=== PATIENT | male | born 1940 | race Caucasian/White ===

== ENCOUNTER 2016-08-16 13:10 | Observation (INO) | payer MEDICARE ==
[~2016-08-16] VITALS: Ht 185.4 cm; Wt 106.8 kg
--- NOTE | ~2016-08-16 | HEMODYNAMI ---
PATIENT:SAE GALAVIZ MEDICAL RECORD: [id number] : 42 LOCATION:[facility] D.2117 ADMISSION DATE: 08/16/16 Generatedon:08/17/20169:22 Patient name: SAE GALAVIZ Patient #: [id number] : 1940 Date of study: 08/17/2016 Page: Of Hemodynamic Procedure Report Patient Data Patient Demographics Procedure consent was obtained First Name: SAE Gender: Male Last Name: ANASTACIA : 1940 Middle Initial: CAITLYN Age: 76 year(s) Patient #: [id number] Race: SSN: [id number] Additional ID: [id number] [facility] State: [place] City: [place] Zip code: [address] Past Medical History Allergies Allergen Reaction Date Comments Reported Other allergy 08/17/2016 Propoxyphene napsylate, Morphine, Admission Admission Data Admission Date: 08/16/2016 Admission Time: 15:23 Arrival Date: 08/16/2016 Arrival Time: 15:23 Admit Source: Other Insurance Payor: Medicare Room #: D.2117 Height (in.): 72 BSA: 2.29 (m2) Height (cm.): 182.88 BMI: 31.99 (kg/m2) Weight (lbs.): 235.9 Weight (kg.): 107 Lab Results Lab Result Date: 08/17/2016 Lab Result Time: 0:00 Biochemistry Name Units Result Min Max BUN mg/dl 31 --(----)-* 7 18 Creatinine mg/dl 1.8 --(----)-* 0.6 1.3 CBC Name Units Result Min Max Hemoglobin g/dl 12.3 *-(----)-- 13.5 17.5 Procedure Procedure Types Cath Procedure Diagnostic Procedure LHC LHC w/Coronaries PCI Procedure Coronary Stent Initial Miscellaneous Procedures Moderate Sedation up to 30 minutes Procedure Description Procedure Date Procedure Date: 08/17/2016 Procedure Start Time: 8:52 Procedure End Time: 9:11 Procedure Staff Name Function Minoo James RT Scrub Rosalie Millan RN Nurse Jatinder Guadarrama MD Performing Physician Lisa Bernabe RT Monitor Procedure Data Cath Procedure Fluoroscopy Diagnostic fluoroscopy Total fluoroscopy Time: 4.5 time: 4.5 min min Diagnostic fluoroscopy Total fluoroscopy dose: 766 dose: 766 mGy mGy Contrast Material Contrast Material Type Amount (ml) Isovue 370 80 Entry Location Entry Primary Successful Side Size Upsize Upsize Entry Closure Succes sful Closure Location (Fr) 1 (Fr) 2 (Fr) Remarks Device Remarks Femoral Right 5 Fr 6 Fr Exoseal artery Short Estimated blood loss: 5 ml Diagnostic catheters Device Type Used For End Catheter Placement Cordis 5Fr Pigtail LV Angiography Catheter (MP) Cordis 5Fr JL 4.0 Left Coronary Catheter (MP) Angiography Cordis 5Fr 3DRC Catheter Right Coronary (MP) Angiography Procedure Complications No complications Procedure Medications Medication Administration Route Dosage Oxygen NC 2 l/min Lidocaine 2% added to field 20 Heparin Flush Bag added to field 2 bags (1000units/500ml NS) 0.9% NaCl I.V. 100 ml/hr Benadryl I.V. 50 mg Versed I.V. 2 mg Fentanyl I.V. 100 mcg Versed I.V. 1 mg Fentanyl I.V. 50 mcg Heparin Bolus I.V. 4000 units Integrilin (Bolus I.V. 9.5 ml 2mg/ml) Versed I.V. 1 mg Fentanyl I.V. 50 mcg Plavix P.O. 75 mg Aspirin P.O. 325 mg Hemodynamics Rest BSA: 2.29 (m2) HGB: 12.3 (g/dl) O2 Consumption: Estimated: 275.43 (ml/min) O2 Co nsumption indexed: Estimated:120.28 (ml/min/m) Heart Rate: 84 (bpm) Pressure Samples Time Site Value (mmHg) Purpose Heart Use Rate(bpm) 8:53 LV 155/48,51 Snapshot 64 Snapshots Pre Cath Intra NCS Post Cath Vital Signs Time Heart Resp SPO2 etCO2 [id number] NIBP (mmHg) Rhythm Pain Sedation Rate (ipm) (%) (mmHg) (mmHg) Status Level (bpm) 8:32:33 69 17 97 0 0 169/94(134) NSR 0 (11) 10(A) , No pain 8:36:53 69 20 96 0 0 158/84(142) NSR 0 (11) 10(A) , No pain 8:41:07 71 16 95 0 0 156/102(135) NSR 0 (11) 10(A) , No pain 8:45:29 68 17 95 0 0 167/91(132) NSR 0 (11) 10(A) , No pain 8:49:41 67 19 95 0 0 142/78(125) NSR 0 (11) 10(A) , No pain 8:53:53 68 17 95 0 0 144/93(114) NSR 0 (11) 10(A) , No pain 8:58:15 72 18 93 0 0 119/76(112) NSR 0 (11) 9(A) , No pain 9:02:27 76 19 94 0 0 133/81(119) NSR 0 (11) 9(A) , No pain 9:06:37 75 19 95 0 0 128/79(100) NSR 0 (11) 9(A) , No pain 9:10:55 78 16 96 0 0 127/66(99) NSR 0 (11) 10(A) , No pain 9:14:38 78 11 0 0 121/73(101) NSR 0 (11) 10(A) , No pain Medications Time Medication Route Dose Verified Delivered Reason Notes Effectiveness by by 8:38:02 Oxygen NC 2 Jatinder Buffie used for l/min Chiara Millan RN procedure 8:38:10 Lidocaine 2% added 20ml Jatinderalex Tobias for local to vial Chiara Guadarrama MD anesthetic field 8:38:16 Heparin Flush added 2 Jatinder Jatinder used for Bag to bags Chiara Guadarrama MD procedure (1000units/500ml field NS) 8:38:25 0.9% NaCl I.V. 100 Jatinder Buffie Per physician ml/hr Chiara Millan RN 8:45:59 Benadryl I.V. 50 mg Jatinder Buffie used for Chiara Millan RN procedure 8:52:28 Versed I.V. 2 mg Jatinder Mccallie for sedation Chiara Millan RN 8:52:34 Fentanyl I.V. 100 Jatinder Buffie for sedation mcg Chiara Millan RN 8:55:38 Versed I.V. 1 mg Jatinder Wiggins for sedation Chiara Millan RN 8:55:42 Fentanyl I.V. 50 Jatinder Wiggins for sedation mcg Chiara Millan RN 8:59:23 Heparin Bolus I.V. 4000 Jatinder Wiggins for verifie d units Chiara Millan RN anticoagulation with dr guadarrama 9:02:00 Integrilin I.V. 9.5 Jatinder Wiggins for waste (Bolus 2mg/ml) ml Chiara Millan RN antiplatelet 0.5 ml therapy of vial 9:05:35 Versed I.V. 1 mg Jatinder Wiggins for sedation Chiara Millan RN 9:05:39 Fentanyl I.V. 50 Jatinder Wiggins for sedation mcg Chiara Millan RN 9:10:58 Plavix P.O. 75 mg Jatinder Wiggins for Chiara Millan RN antiplatelet therapy 9:11:25 Aspirin P.O. 325 Jatinder Wiggins for mg Chiara Millan RN antiplatelet therapy Procedure Log Time Note 8:03:42 Informed consent obtained and on chart 8:05:03 Lab Result : Hemoglobin 12.3 g/dl 8:05:03 Lab Result : Creatinine 1.8 mg/dl 8:05:03 Lab Result : BUN 31 mg/dl 8:05:11 Diagnostic Cath Status : Elective 8:09:04 Rosalie Millan RN sent for patient. Start room use. 8:09:05 Time tracking: Regular hours 8:09:11 Plan of Care:Hemodynamics will remain stable., Cardiac rhythm will remain stable., Comfort level will be maintained., Respiratory function will remain adequate., Patient/ family verbilizes understanding of procedure., Procedure tolerated without complication., Recovers from procedure without complications.. 8:11:02 Admit Source: Other 8:11:21 Arrival Date: 08/16/2016 3:23:00 PM 8:11:37 Insurance Payor : Medicare 8:22:59 Patient received from Med II to [facility] 1 Alert and oriented. Tansferred to table in Supine position. 8:23:01 Correct patient and procedure confirmed by team. 8:23:01 Warm blankets applied, and jitendra hugger turned on for patient comfort. 8:23:18 H&P Date Dictated: 08/17/2016 Within 30 days and on chart.. 8:23:20 Pre-procedure instructions explained to patient. 8:23:22 Family in waiting room. 8:23:24 Patient NPO since Midnight. 8:24:05 Patient allergic to Other allergyPropoxyphene napsylate, Morphine, 8:31:17 Vital chart was started 8:31:17 ECG and BP/O2 sat monitors applied to patient. 8:31:18 Baseline sample Acquired. 8:31:42 Rhythm: sinus rhythm 8:31:43 Full Disclosure recording started 8:31:51 Is the patient allergic to Iodine/contrast media? No. 8:31:52 Was the patient premedicated? No 8:32:00 Is patient on blood thinner?No 8:32:20 Patient diabetic? No. 8:32:25 Previous problem with sedation/anesthesia? No ? 8:32:29 Snore? Yes 8:32:30 Sleep apnea? Yes 8:32:50 Deviated septum? No 8:32:51 Opens mouth fully? Yes 8:32:52 Sticks out tongue? Yes 8:32:58 Airway obstruction? Yes copd 8:33:05 Dentures? Yes ? 8:36:02 Pre procedure: right dorsailis pedis pulse 1+ Palpable, but thready & weak; easily obliterated 8:36:04 Patient pain scale 0/10 ?. 8:36:13 IV patent on arrival in right forearm with 0.9% NaCl at [facility]. 8:36:15 Lab results completed and on chart. 8:36:21 Right groin area was prepped with chlora-prep and draped in sterile fashion 8:36:22 Alarms reviewed by R. N. 8:36:23 Sharps counted by scrub and verified by R.N. 8:37:48 Patient Weight : 235.9 kg 8:38:02 Oxygen 2 l/min NC was administered by Rosalie Millan RN; used for procedure; 8:38:05 Patient Height : 72 cm 8:38:10 Lidocaine 2% 20ml vial added to field was administered by Jatindre Guadarrama MD; for local anesthetic; 8:38:16 Heparin Flush Bag (1000units/500ml NS) 2 bags added to field was administered by Jatinder Guadarrama MD; used for procedure; 8:38:25 0.9% NaCl 100 ml/hr I.V. was administered by Rosalie Millan RN; Per physician; 8:41:40 Zero performed for pressure channel P1 8:44:25 Baseline sample Acquired. 8:44:31 Physician paged 8:45:59 Benadryl 50 mg I.V. was administered by Rosalie Millan RN; used for procedure; 8:51:29 Physician arrived 8:51:30 Final Timeout: patient, procedure, and site verified with staff and physician. All members of the team are in agreement. 8:51:30 --------ALL STOP TIME OUT------ 8:51:32 Right groin site verified by team. 8:51:35 Physical assessment completed. ASA score P 3 - A patient with severe systemic disease as per Jatinder Guadarrama MD. 8:51:38 Sedation plan: IV Moderate Sedation Versed, Fentanyl 8:51:54 Use device set Femoral Dx 8:51:56 Medline Cath Pack opened to sterile field. 8:51:56 Bag Decanter opened to sterile field. 8:51:56 Acist Syringe opened to sterile field. 8:51:57 St Jean-Claude 260cm J .035 wire opened to sterile field. 8:51:57 Terumo 5Fr Bonita Sheath opened to sterile field. 8:51:59 Diagnostic Infinity 5Fr Multipack catheter opened to sterile field. 8:51:59 Acist Manifold opened to sterile field. 8:51:59 Acist Hand Control opened to sterile field. 8:52:00 Tegaderm 4 x 4 opened to sterile field. 8:52:15 Procedure started. 8:52:19 Local anesthetic to right femoral artery with Lidocaine 2% by Jatinder Guadarrama MD.INITIAL ACCESS ONLY 8:52:28 Versed 2 mg I.V. was administered by Rosalie Millan RN; for sedation; 8:52:28 A 5 Fr sheath was inserted into the Right Femoral artery 8:52:34 Fentanyl 100 mcg I.V. was administered by Rosalie Millan RN; for sedation; 8:53:12 A Cordis 5Fr Pigtail Catheter (MP) was advanced over the wire and used for LV Angiography. 8:53:57 LV hemodynamics recorded. 8:53:59 LV gram done using HER 8:54:04 Injector settings: Ml/sec: 5, Volume: 15, 8:54:33 EF : 40 % 8:54:39 Catheter removed. 8:54:45 A Cordis 5Fr JL 4.0 Catheter (MP) was advanced over the wire and used for Left Coronary Angiography. 8:55:11 LCA angiography performed. 8:55:14 Injector settings: Ml/sec: 3, Volume: 6, 8:55:38 Versed 1 mg I.V. was administered by Rosalie Millan RN; for sedation; 8:55:42 Fentanyl 50 mcg I.V. was administered by Rosalie Millan RN; for sedation; 8:57:07 Catheter removed. 8:57:14 A Cordis 5Fr 3DRC Catheter (MP) was advanced over the wire and used for Right Coronary Angiography. 8:57:46 RCA angiography performed. 8:57:50 Injector settings: Ml/sec: 3, Volume: 6, 8:58:32 Catheter removed. 8:58:34 Proceeding to intervention. 8:59:01 Cordis 6FR XBLAD 4.0 guide catheter opened to sterile field. 8:59:02 Massey Whisper J 300cm 0.014 guide wire opened to sterile field. 8:59:03 Tus reQRdos BasixCompak Inflation Kit opened to sterile field. 8:59:04 Terumo 6Fr Bonita Sheath opened to sterile field. 8:59:23 Heparin Bolus 4000 units I.V. was administered by Rosalie Millan RN; for anticoagulation; verified with dr guadarrama 8:59:52 Sheath upsized to a 6 Fr Short. 9:00:01 6 Fr xblad 4 guide catheter was inserted over the wire 9:00:06 whisper wire advanced. 9:00:08 Wire advanced across lesion. 9:02:00 Integrilin (Bolus 2mg/ml) 9.5 ml I.V. was administered by Rosalie Millan RN; for antiplatelet therapy; waste 0.5 ml of vial 9:02:39 Inflation number: 1 A Dupont Sci Vernon 3.5 X 15 balloon was prepped and advanced across the Mid LAD, then inflated to 13 PAUL for 0:10 (min:sec). 9:02:56 Inflation number: 2 The Dupont Sci Vernon 3.5 X 15 balloon was reinflated across the Mid LAD, to 13 PAUL for 0:10 (min:sec). 9:03:17 Inflation number: 3 The Dupont Sci Vernon 3.5 X 15 balloon was reinflated across the Mid LAD, to 13 PAUL for 0:10 (min:sec). 9:03:37 Inflation number: 4 The Dupont Sci Vernon 3.5 X 15 balloon was reinflated across the Mid LAD, to 13 PAUL for 0:10 (min:sec). 9:03:38 Balloon removed over the wire. 9:05:35 Versed 1 mg I.V. was administered by Rosalie Millan RN; for sedation; 9:05:39 Fentanyl 50 mcg I.V. was administered by Rosalie Millan RN; for sedation; 9:06:01 Inflation Number: 5 A Biofreedom 3.5 x 14 stent (No Cost Implant) was prepped and advanced across the Mid LAD. The stent was deployed at 15 PAUL for 0:10 (min:sec). 9:06:29 Stent catheter was removed intact over wire. 9:09:02 Wire removed. 9:09:03 Guide catheter removed. 9:09:10 Cordis 6Fr Exoseal opened to sterile field. 9:09:19 Sheath removed intact; hemostasis achieved with Exoseal to the Right Femoral artery. 9:09:20 Procedure ended.(Physican Out) 9:09:49 Fluoroscopy time 04.50 minutes. 9:09:54 Fluoroscopy dose: 766 mGy 9:09:54 Flurop Dose total: 766 9:09:58 Contrast amount:Isovue 370 80ml. 9:10:00 Sharps counted by scrub and verified by R.N. 9:10:01 Insertion/operative site no bleeding no hematoma. 9:10:04 Post-op/insertion site Right Femoral artery dressed using a 4 x 4 and Tegaderm. 9:10:06 Post right femoral artery:stable 9:10:08 Post Procedure Pulses reassessed and unchanged 9:10:11 Post procedure rhythm: unchanged. 9:10:14 Estimated blood loss: 5 ml 9:10:16 Post procedure instruction explained to patient.Patient verbalizes understanding. 9:10:17 Patient needs reinforcement of post procedure teaching. 9:10:41 Procedure type changed to Cath procedure, Diagnostic procedure, LHC, LHC w/Coronaries, PCI procedure, Coronary Stent Initial, Miscellaneous Procedures, Moderate Sedation up to 30 minutes 9:10:42 Procedure and supply charges have been captured, reviewed, submitted and are correct. 9:10:46 Procedure Complication : No complications 9:10:48 Vital chart was stopped 9:10:49 See physician's report for complete and final results. 9:10:58 Plavix 75 mg P.O. was administered by Rosalie Millan RN; for antiplatelet therapy; 9:11:02 Report given to [facility]. 9:11:06 Patient transfered to [facility] with Stretcher. 9:11:07 Full Disclosure recording stopped 9:11:07 Procedure ended. 9:11:13 ACC-PCI Only Patient was given prescriptions, or instructed by Jatinder Guadarrama MD to start/continue the following medications upon discharge: Plavix 9:11:15 End room use (Document Last) 9:11:25 Aspirin 325 mg P.O. was administered by Rosalie Millan RN; for antiplatelet therapy; Intervention Summary Intervention Notes Time ActionType Lesion and Equipment Action# Pressure Duration Attributes Used 9:02:39 Inflate Mid LAD Dupont Sci 1 13 00:10 balloon Vernon 3.5 X 15 balloon 9:02:56 Reinflate Mid LAD Dupont Sci 2 13 00:10 balloon Vernon 3.5 X 15 balloon 9:03:17 Reinflate Mid LAD Dupont Sci 3 13 00:10 balloon Vernon 3.5 X 15 balloon 9:03:37 Reinflate Mid LAD Dupont Sci 4 13 00:10 balloon Vernon 3.5 X 15 balloon 9:06:01 [address] stent Mid LAD Biofreedom 5 15 00:10 3.5 x 14 stent (No Cost Implant) Device Usage Item Name Manufacture Quantity Catalog Number Hospital Part Current [facility] Lot# / Charge Number Stock Stock Serial# Code Acist Acist 1 43330 [id number] 301808 050993 20 Syringe Medical Systems Inc Bag Microtek 1 2002S 380396 54334 232730 5 mo9 (moKredit) Inc. Medline Cardinal 1 [id number] 112506 23274 254550 5 MediaTrust Terumo 5Fr Terumo 1 [id number] 505714 539389 390572 [address] [facility] St Jean-Claude 1 724934 739387 376450 577100 30 260cm J .035 wire Acist Hand Acist 1 02335 998488 925259 330397 5 GoGuide Medical Systems Inc Acist Acist 1 22250 818242 527424 633203 5 Plizy Medical Systems Inc Diagnostic Cardinal 1 [id number] 049539 02158 151866 30 Infinity Health 5Fr Multipack catheter Tegaderm 4 3M 1 1626W 287458 585481 322244 5 x 4 Cordis 5Fr Cardinal 1 369653 5 Pigtail Health Catheter (MP) Cordis 5Fr Cardinal 1 403822 5 JL 4.0 Health Catheter (MP) Cordis 5Fr Cardinal 1 461109 5 3DRC Health Catheter (MP) Cordis 6FR Cardinal 1 [id number] 883340 621300 762084 3 XBLAD 4.0 Health guide catheter Massey Massey 1 [id number] 762722 509627 322245 5 Whisper J Vascular 300cm 0.014 guide wire Merit Merit 1 [id number] 804411 569482 892339 15 Unbooked Ltd Medical Inflation Kit Terumo 6Fr Terumo 1 VQV693 809707 486564 027251 40 Bonita Sheath Dupont Sci Dupont 1 [id number] 898543 347575 547357 1 [id number] Everpay 3.5 X 15 balloon Biofreedom Biosensors 1 BFRC2-3514 351315 787444 5 [id number] 3.5 x 14 Europe SA stent (No Cost Implant) Cordis 6Fr Cardinal 1 EX600 528238 525801 946205 10 [facility] Signature Audit [place] Stage Time Signature Unsigned Intra-Procedure 08/17/2016 Minoo Ramirez RT(R) 9:15:29 AM RT(R) 08/17/2016 9:20:31 AM Intra-Procedure 08/17/2016 Minoo Ramirez 9:22:10 AM RT(R) Signatures Monitor : Lisa Bernabe Signature : RT Date : Time : [facility] [address] [place] [address]
[~2016-08-16 13:10] MED LIST: ACETAMINOPHEN500 M1 PO; BAYER CHEWABLE81 MG PO; COREG 3.1253.125 MG PO; IBUPROFEN200 MG PO; K-TAB10 MEQ PO; LEVAQUIN500 MG PO; METOPROLOL TART50 MG PO; NITROSTAT0.4 MG SL; NORVASC5 MG PO; PLAVIX75 MG PO; PRAVACHOL40 MG PO; PREDNISONE20 MG PO; TRICOR145 MG PO; ZESTORETIC 20/21 TAB PO; ZYLOPRIM300 MG PO; [UNRECOGNIZED DRUG - OTHER] INH
[2016-08-16 13:51] LABS: BASOPHILS 0.3 % (0-2); EOSINOPHILS 5.4 % (0-7); HEMATOCRIT 38.9 % (42.0-54.0); HEMOGLOBIN 12.3 g/dL (13.5-17.5); IMMATURE GRANULOCYTES 1.2 % (0-5); LYMPHOCYTES 13.8 % (15-50); MCH 30.7 pg (26.0-34.0); MCHC 31.6 g/dL (31.0-37.0); MEAN PLATELET VOLUME 11.1 fL (7.4-10.4); MONOCYTES 5.7 % (2-11); NEUTROPHILS 73.6 % (40-80); RBC 4.01 10x6/uL (4.20-6.10); RDW 14.2 % (11.5-14.5); WBC 7.8 10x3/uL (4.8-10.8)
[2016-08-16 13:56] LABS: PLATELET COUNT 228 10x3/uL (130-400)
[2016-08-16 14:09] LABS: ALBUMIN 3.6 g/dL (3.4-5.0); ALKALINE PHOSPHATASE 58 U/L (46-116); ALT (SGPT) 27 U/L (10-68); BILIRUBIN - TOTAL 0.47 mg/dL (0.2-1.3); CALC OSMOLALITY 284 mosm/kg (275-300); CALCIUM 9.9 mg/dL (8.5-10.1); CARBON DIOXIDE 27.9 mmol/L (21.0-32.0); CHLORIDE - SERUM 102 mmol/L (98-107); GLUCOSE 108 mg/dL (74-106); POTASSIUM - SERUM 4.5 mmol/L (3.5-5.1); PROTEIN - SERUM 7.4 g/dL (6.4-8.2); SODIUM 138 mmol/L (136-145); UREA NITROGEN 34 mg/dL (7-18); eGFR NON AFRICAN AMERICAN 35 mL/min (90-120)
[2016-08-16 14:25] LABS: CHOL - HDL RATIO 1.8 ratio (2.3-4.9); CHOLESTEROL, TOTAL 110 mg/dL (0-200); CKMB 7.9 U/L (0.0-3.6); CREATINE KINASE 166 UL (21-232); HDL CHOLESTEROL 62 mg/dL (32-96); LDL CHOLESTEROL 37 mg/dL (0-100); LDL-HDL RATIO 0.6 ratio (1.5-3.5); TRIGLYCERIDE 59 mg/dL (30-200)
[2016-08-16 14:30] LABS: TROPONIN-I 1.792 ng/mL (0.000-0.060)
[2016-08-16 15:33] LABS: APTT 31.9 SECONDS (22.8-39.4); INR 0.98 (0.85-1.17); PROTIME 12.8 SECONDS (11.6-15.0)
--- NOTE | 2016-08-16 15:55 | NUR ---
RECEIVED PT TO ROOM 2116 VIA W/C FROM ER AAOX4 DENIES ANY NEEDS AT THIS TIME DENIES PAIN TELEMETRY APPLIED SR RATE 67 WITH BBB AND PACs WILL CONTINUE TO MONITOR
[2016-08-16 16:26] VITALS: BP 148/64; Ht 185.4 cm; Wt 106.8 kg
[2016-08-16 19:28] LABS: TROPONIN-I 2.054 ng/mL (0.000-0.060)
[2016-08-16] MEDS ORDERED: ULORIC40 MG PO (20:03)
[2016-08-16] MEDS ORDERED: HYZAAR 50-12.51 TAB PO (20:03)
[2016-08-16] MEDS ORDERED: ULTRAM50 MG PO (20:06)
[2016-08-16 20:20] VITALS: BP 137/70
[2016-08-17 00:09] VITALS: BP 133/72
[2016-08-17 02:28] LABS: CKMB 5.4 U/L (0.0-3.6); CREATINE KINASE 197 UL (21-232); TROPONIN-I 1.937 ng/mL (0.000-0.060)
[2016-08-17 04:15] VITALS: BP 135/76
[2016-08-17 07:23] VITALS: BP 136/71
[2016-08-17 07:43] LABS: CALCIUM 9.2 mg/dL (8.5-10.1); CARBON DIOXIDE 29.2 mmol/L (21.0-32.0); CREATININE - SERUM 1.8 mg/dL (0.6-1.3); POTASSIUM - SERUM 4.2 mmol/L (3.5-5.1)
[2016-08-17 07:44] LABS: TROPONIN-I 1.548 ng/mL (0.000-0.060)
[2016-08-17] MEDS ORDERED: FENOFIBRATE160 MG PO (07:44)
--- NOTE | 2016-08-17 09:45 | NUR ---
RECEIVED PT TO ROOM AAOX4 RESP UNLABORED DENIES ANY NEEDS DRSG TO RT GROIN C/D/I NO SIGNS OF BLEEDING PPPX4
[2016-08-17 12:09] VITALS: BP 133/85
--- NOTE | 2016-08-17 14:15 | NUR ---
REVIEWED DISCHARGE INSTRUCTIONS WITH PT STATES UNDERSTANDING COPY GIVEN SALINE LOCK DCD TO RAC WITH IV CATHETER INTACT NO REDNESS OR EDEMA NOTED TO SITE PT DISCHARGED HOME LEFT UNIT IN STABLE CONDITION WITH ALL PERSONAL BELONGINGS
--- NOTE | 2016-08-19 18:08 | HP ---
PATIENT: SAE GALAVIZ MEDICAL RECORD: [id number] ACCOUNT: [id number] LOCATION:[facility] D.2117 : 42 ADMISSION DATE: 08/16/16 HISTORY AND PHYSICAL EXAMINATION DATE OF SERVICE: 08/17/2016 DIAGNOSES: 1. Non-Q-wave myocardial infarction. 2. Coronary artery disease. 3. Previous cardiac stenting, last being 01/02/2014. 4. Smoking history. 5. Hypertension. 6. Hyperlipidemia. MEDICATIONS PRIOR TO ADMISSION: Aspirin, Coreg, amlodipine, fenofibrate, lisinopril, and pravastatin. HISTORY OF PRESENT ILLNESS: This is a gentleman with a past history of coronary artery disease. Last cardiac stent was approximately 2-1/2 years ago. He began having 2 days of chest pain, chest discomfort compatible with angina, quite severe yesterday. Troponin is mildly positive for a small non-Q-wave myocardial infarction. CARDIOVASCULAR HISTORY: Negative for congestive heart failure, negative for myocardial infarction, positive for PCI, negative for CABG, negative for CVA, negative for bleeding problems, negative for peripheral vascular disease. Not a current smoker. Negative for atrial fibrillation. PHYSICAL EXAMINATION: GENERAL APPEARANCE: Well-nourished, well-developed, appears stated age. Level of distress, comfortable. PSYCHIATRIC: Mental status, alert, normal affect. Orientation, oriented to time, place and person. EYES: Lids and conjunctiva, noninjected. No discharge, no pallor. ENT: Lips, teeth, gums, normal dentition. Oropharynx, no cyanosis, no pallor. NECK: Carotid arteries, bilateral normal upstroke, no bruits, no thrills. JUGULAR VEINS: No jugular venous pressure or distention. CERVICAL LYMPH NODES: Nontender, nonenlarged. THYROID: Not enlarged. Nontender. No nodules. LUNGS: Respiratory effort, unlabored. CHEST: Normal curvature. No thoracic deformity. No chest wall tenderness. Percussion, resonant. Auscultation, clear. No wheezes, no rales, no rhonchi. CARDIOVASCULAR: Precordial exam, nondisplaced. No heaves or pericardial thrills. Rate and rhythm, regular. Heart sounds, normal S1, normal S2. No S3, no gallop, no rub. Systolic murmur, not heard. Diastolic murmur, not heard. EXTREMITIES: No cyanosis, no edema. Peripheral pulses, full and equal in all extremities, except as noted. No bruits appreciated. ABDOMEN: Soft, nondistended. Normal aorta. No bruit. Nontender. No masses. Liver, nontender, no hepatomegaly. Spleen, nontender, no splenomegaly. MUSCULOSKELETAL: No joint tenderness. No joint swelling. No erythema. NEUROLOGICAL: Normal gait, normal strength, normal tone. SKIN: Warm and dry. OVERALL IMPRESSION: Non-Q-wave myocardial infarction. We will proceed with HISTORY AND PHYSICAL [id number] SAE GALAVIZ coronary angiography. Further care depends upon findings of the angiography. TRANSINT:[id number] Voice Confirmation ID: [id number] DOCUMENT ID: [id number] SERENA SALVADOR MD at 1808 CC: [id number] DICTATION DATE: 08/17/16 0751 GREASE MAKER: 08/17/16 1039 DIS IN 08/17/16 [address] [place] [address]
--- NOTE | 2016-08-19 18:08 | OP ---
PATIENT NAME: SAE GALAVIZ MEDICAL RECORD: [id number] :42 LOCATION:D.M2 D.2117 ADMISSION DATE:08/16/16 SURGEON: SERENA SALVADOR MD DATE OF OPERATION: 08/17/2016 PROCEDURES: 1. PTCA stent of the LAD. 2. Left heart catheterization. 3. Selective coronary angiography. 4. Left ventriculogram. INDICATION: Non-Q-wave myocardial infarction. PROCEDURE: After informed consent was obtained and after detailed explanation of risks, benefits as well as alternative therapies, the patient elected to proceed with angiogram and angioplasty. The right femoral area was prepped and draped in normal sterile fashion. The right femoral artery was cannulated via modified Seldinger technique with placement of 6-Estonian sheath. All catheters exchanged through this sheath. FINDINGS: Left ventriculogram was performed in standard 30-degree HER view, reveals global hypokinesis. Overall ejection fraction estimated at 40%. SELECTIVE CORONARY ANGIOGRAPHY: 1. Left main showed no significant angiographic disease. 2. Left anterior descending has previously placed stents in the LAD and the LAD diagonal. At the juncture of the LAD and LAD diagonal, there is a hazy 80% stenosis in the LAD itself. Otherwise, the LAD has only moderate irregularities, but no flow-limiting stenosis. This area of in-stent restenosis is approximately 12 mm, there is a 3-5 vessel, there is MARIKA 3 flow at this time. 3. Left circumflex has moderate irregularities, but no flow-limiting stenosis. 4. The right coronary has previously placed stent. This is a widely patent with no significant restenosis. No disease elsewise throughout ____. PTCA STENT OF THE LAD: The stent used was a 3.5 x 14 mm BioFreedom taken to 15 atmospheres. Result was 0% residual stenosis, MARIKA-3 flow. IMPRESSION: Successful percutaneous transluminal coronary angioplasty stent of the left anterior descending going from 80% in-stent restenosis to 0% residual stenosis. TRANSINT:[id number] Voice Confirmation ID: [id number] DOCUMENT ID: [id number] SERENA SALVADOR MD at 1808 CC: [id number] DICTATION DATE: 08/17/16921 FIELD TRAINING MANAGER: 08/17/16 1848 DIS IN 08/17/16 [facility] [address] [facility] [place] [address]
--- NOTE | 2016-08-19 18:08 | DS ---
PATIENT:SAE WELSH :42 MEDICAL RECORD: [id number] DISCHARGE SUMMARY ADMISSION DATE: 08/16/16 DISCHARGE DATE: 08/17/16 DATE OF SERVICE: 08/17/2016. DIAGNOSES: 1. Non-Q-wave myocardial infarction. 2. Coronary artery disease. 3. Hypertension. 4. Hyperlipidemia. 5. Percutaneous transluminal coronary angioplasty stent left anterior descending this admission. HOSPITAL COURSE: Mrs. Welsh presents with anginal symptomatology, rules in for non-Q-wave myocardial infarction, underwent cardiac catheterization revealing single vessel disease to the LAD, underwent successful PTCA stent of the LAD, had an uneventful postop course. He was discharged home with the addition of Plavix to his medical regimen as he is already on aspirin, beta patricia and statin. We will follow up with [facility] in 1 month. TRANSINT:[id number] Voice Confirmation ID: [id number] DOCUMENT ID: [id number] SERENA SALVADOR MD at 1808 CC: [id number] DICTATION DATE: 08/17/16919 GRAPHIC DESIGN ASSISTANT: 08/18/16 0106 DIS IN 08/17/16 [facility] [address] [place] [address]
== END 2016-08-17 14:15 | disposition home or self-care (01) ==
LOC: D.ER 13:10 → D.M2 15:23 → OBSVTIME 15:23 → D.M2 08-17 14:15
PROVIDERS: Emergency Medicine; Nurse Practitioner Acute Care; ADMIT Internal Medicine Interventional Cardiology
DX: I21.4 Non-ST elevation (NSTEMI) myocardial infarction (principal); I25.10 Atherosclerotic heart disease of native coronary artery without angina pectoris; T82.855A Stenosis of coronary artery stent, initial encounter; Y83.8 Other surgical procedures as the cause of abnormal reaction of the patient, or of later complication, without mention of misadventure at the time of the procedure; I10 Essential (primary) hypertension; E78.5 Hyperlipidemia, unspecified; Z00.6 Encounter for examination for normal comparison and control in clinical research program
CPT/HCPCS: 93458; C9600

== ENCOUNTER 2017-07-27 09:01 | Observation (INO) | payer MEDICARE ==
[~2017-07-27] VITALS: Ht 185.4 cm; Wt 114.4 kg
--- NOTE | ~2017-07-27 | CN ---
PATIENT NAME:SAE GALAVIZ MEDICAL RECORD: [id number] : 42 LOCATION:D. D.2112 ADMIT DATE: 07/27/17 ACCOUNT: [id number] CONSULTING PHYSICIAN: SERENA SALVADOR MD REFERRING PHYSICIAN: NENA CARRERA MD DATE OF CONSULTATION: 07/29/2017 DIAGNOSES: 1. Angina. 2. Coronary artery disease. 3. Previous PTCA and stent. 4. Hypertension. 5. Chronic obstructive pulmonary disease. 6. Smoking history. 7. Hyperlipidemia. 8. Renal insufficiency. HISTORY OF PRESENT ILLNESS: This is a gentleman known to us with a past history of coronary artery disease. He presented with dizziness and chest pain. His troponin is normal; however, his EKG has ST-T changes in the anterior leads on serial EKGs. He has continued to have some episodes of chest pain. Last cardiac intervention was approximately 2 years ago. PHYSICAL EXAMINATION: GENERAL APPEARANCE: Well-nourished, well-developed, appears stated age. Level of distress, comfortable. PSYCHIATRIC: Mental status, alert, normal affect. Orientation, oriented to time, place and person. EYES: Lids and conjunctiva, noninjected. No discharge, no pallor. ENT: Lips, teeth, gums, normal dentition. Oropharynx, no cyanosis, no pallor. NECK: Carotid arteries, bilateral normal upstroke, no bruits, no thrills. JUGULAR VEINS: No jugular venous pressure or distention. CERVICAL LYMPH NODES: Nontender, nonenlarged. THYROID: Not enlarged. Nontender. No nodules. LUNGS: Respiratory effort, unlabored. CHEST: Normal curvature. No thoracic deformity. No chest wall tenderness. Percussion, resonant. Auscultation, clear. No wheezes, no rales, no rhonchi. CARDIOVASCULAR: Precordial exam, nondisplaced. No heaves or pericardial thrills. Rate and rhythm, regular. Heart sounds, normal S1, normal S2. No S3, no gallop, no rub. Systolic murmur, not heard. Diastolic murmur, not heard. EXTREMITIES: No cyanosis, no edema. Peripheral pulses, full and equal in all extremities, except as noted. No bruits appreciated. ABDOMEN: Soft, nondistended. Normal aorta. No bruit. Nontender. No masses. Liver, nontender, no hepatomegaly. Spleen, nontender, no splenomegaly. MUSCULOSKELETAL: No joint tenderness. No joint swelling. No erythema. NEUROLOGICAL: Normal gait, normal strength, normal tone. SKIN: Warm and dry. REVIEW OF SYSTEMS: The patient reports easy bruising but reports no swollen glands. The patient reports no fever, no night sweats, no significant weight gain, no significant weight loss. No significant exercise tolerance. The patient reports no dry eyes, no irritation, no vision change. Patient reports no difficulty hearing and no ear pain. Patient reports no frequent nose bleeds or nose and sinus problems. Patient reports on arm pain on exertion. No shortness of breath while lying down. No history of heart murmur. Patient CONSULT REPORT [id number] SAE GALAVIZ CAITLYN reports no cough, no wheezing or coughing up blood. Patient reports no abdominal pain, no vomiting. Normal appetite. No diarrhea and not vomiting blood. No nausea and no constipation. Patient reports no incontinence. No difficulty urinating. No hematuria. No increased frequency. Patient reports no muscle aches. No weakness, no arthralgias, no back pain. No swelling of the extremities. Patient reports no abnormal mole, no jaundice, no rashes. Reports no loss of consciousness. No weakness and no numbness. No seizures, dizziness, or headaches. The patient reports no depression, no sleep disturbance, feeling safe in a relationship and no alcohol abuse. Patient reports on fatigue. Reports no runny nose or sinus pressure. No itching, no hives, and no frequent sneezing. OVERALL IMPRESSION: Chest pain with changes on his EKG from serial EKGs is concerning. We will proceed with coronary angiography only after hydration today. Further care depends upon findings of the angiography. TRANSINT:[id number] Voice Confirmation ID: [id number] DOCUMENT ID: [id number] SERENA SALVADOR MD at 1006 CC: [id number] DICTATION DATE: 07/29/17 1246 RUBBER GOODS CUTTER FINISHER: 07/29/17 1355 ADM IN [id number] [place] [address]
--- NOTE | ~2017-07-27 | OP ---
PATIENT NAME: SAE GALAVIZ MEDICAL RECORD: [id number] :42 LOCATION:D.M2 D.2112 ADMISSION DATE:07/27/17 SURGEON: SERENA SALVADOR MD DATE OF OPERATION: 07/30/2017 PROCEDURES: 1. PTCA stent LAD. 2. Selective coronary angiography. 3. Four-vessel carotid and vertebral angiography. 4. Intravascular ultrasound. INDICATION: Angina and coronary artery disease. PROCEDURE IN DETAIL: After informed consent was obtained and after detailed explanation of risks, benefits as well as alternative therapies, the patient elected to proceed with angiogram and angioplasty. The right femoral area was prepped and draped in normal sterile fashion. Right femoral artery was cannulated via modified Seldinger technique with placement of 5-Kinyarwanda sheath. All catheters exchanged through the sheath. FINDINGS: There was subselection of each subclavian as well as the left carotid. Right side common internal and external carotids have mild plaquing, none greater than 20%, no flow-limiting stenosis. Vertebral artery has no significant stenosis. LEFT SYSTEM: The common internal and external carotids have mild plaquing, no greater than 20%, no flow-limiting stenosis. The vertebral artery has no significant stenosis. Left ventriculogram performed in standard 30-degree HER view reveals good cardiac wall motion throughout all segments. Overall ejection fraction estimated 60%. SELECTIVE CORONARY ANGIOGRAPHY: 1. Left main is with no significant angiographic disease. 2. Left anterior descending has greater than 70% stenosis confirmed by intravascular ultrasound. 3. Left circumflex has moderate irregularities, but no flow-limiting stenosis. 4. Right coronary artery has moderate irregularities, but no flow-limiting stenosis. PTCA STENT OF THE LAD: The stent used was a 4.0 x 18 mm Integrity, taken to 23 atmospheres. Result was 0% residual stenosis. OVERALL IMPRESSION: Successful percutaneous transluminal coronary angioplasty stent of the left anterior descending going from greater than 70% initial stenosis to 0% residual stenosis. TRANSINT:[id number] Voice Confirmation ID: [id number] DOCUMENT ID: [id number] OPERATIVE REPORT [id number] SAE GALAVIZ JEFFREY MD at 1721 CC: [id number] DICTATION DATE: 07/30/17 1240 OFFSHORE WIND OPERATIONS MANAGER: 07/30/17 1253 ADM IN [address] [place] [address]
--- NOTE | ~2017-07-27 | HEMODYNAMI ---
PATIENT:SAE GALAVIZ MEDICAL RECORD: [id number] : 42 [facility]2112 [id number] ADMISSION DATE: 07/27/17 Generatedon:07/30/201712:47 Patient name: SAE GALAVIZ Patient #: [id number] : 1940 Date of study: 07/30/2017 Page: Of Hemodynamic Procedure Report Patient Data Patient Demographics Procedure consent was obtained First Name: SAE Gender: Male Last Name: ANASTACIA : 1940 [facility] Initial: CAITLYN Age: 77 year(s) Patient #: [id number] Race: SSN: [id number] Additional ID: [id number] Contact details [address]: [address] [place], [place] [address] State: [place] City: [place] Zip code: [address] Past Medical History Allergies Allergen Reaction Date Comments Reported Other allergy 08/17/2016 Propoxyphene napsylate, Morphine, Other allergy 07/30/2017 Moephine, Darvocet Admission Admission Data Admission Date: 07/27/2017 Admission Time: 14:20 Room #: D.2112 Lab Results Lab Result Date: 07/30/2017 Lab Result Time: 0:00 Biochemistry Name Units Result Min Max BUN mg/dl 26 --(----)-* 7 18 Creatinine mg/dl 1.7 --(----)-* 0.6 1.3 CBC Name Units Result Min Max Hemoglobin g/dl 11.9 *-(----)-- 13.5 17.5 Procedure Procedure Types Cath Procedure Diagnostic Procedure LHC LHC w/Coronaries FFR/IVUS Intra-Coronary IVUS Initial Sedation Charges Moderate Sedation up to 15 minutes PCI Procedure Coronary Stent Coronary Stent Initial Peripheral Cath Diagnostic Procedure Cath Peripheral Four Vessel Arteriogram Procedure Description Procedure Date Procedure Date: 07/30/2017 Procedure Start Time: 12:16 Procedure End Time: 12:46 Procedure Staff Name Function Jatinder Guadarrama MD Performing Physician Ricky Weinstein RT Monitor Dayami Henry RT Scrub Anastasia Dueñas RN Nurse Procedure Data Cath Procedure Fluoroscopy Diagnostic fluoroscopy Total fluoroscopy Time: 4.6 time: 4.6 min min Diagnostic fluoroscopy Total fluoroscopy dose: dose: 1020 mGy 1020 mGy Contrast Material Contrast Material Type Amount (ml) Isovue 300 102 Entry Location Entry Primary Successful Side Size Upsize Upsize Entry Closure Succes sful Closure Location (Fr) 1 (Fr) 2 (Fr) Remarks Device Remarks Femoral Right 5 Fr Exoseal artery Estimated blood loss: 10 ml Diagnostic catheters Device Type Used For End Catheter Placement MULTIPACK Pigtail 5 Fr Procedure catheter MULTIPACK JL 4.0 5Fr Procedure catheter MULTIPACK 3DRC 5Fr Procedure catheter MULTIPACK 3DRC 5Fr Procedure catheter Procedure Complications No complications Procedure Medications Medication Administration Route Dosage Versed I.V. 1 mg Fentanyl I.V. 50 mcg Heparin Bolus I.V. 4000 units Versed I.V. 1 mg Fentanyl I.V. 25 mcg 0.9% NaCl I.V. 100 ml/hr Oxygen NC 2 l/min Lidocaine 2% added to field 20 Heparin Flush Bag added to field 2 bags (1000units/500ml NS) Hemodynamics Rest HGB: 11.9 (g/dl) Heart Rate: 64 (bpm) Snapshots Pre Cath Intra NCS Post Cath Vital Signs Time Heart Resp SPO2 NIBP (mmHg) Rhythm Pain Sedation Rate (ipm) (%) Status Level (bpm) 12:05:16 71 23 99 139/73(102) NSR 0 (11) 10(A) , No pain 12:10:03 64 19 98 128/68(100) NSR 0 (11) 10(A) , No pain 12:14:50 62 17 98 120/65(86) NSR 0 (11) 10(A) , No pain 12:19:32 108 19 97 115/72(95) NSR 0 (11) 9(A) , No pain 12:24:15 67 32 97 123/67(86) NSR 0 (11) 9(A) , No pain 12:28:59 67 26 98 133/71(90) NSR 0 (11) 9(A) , No pain 12:33:46 69 19 97 123/67(85) NSR 0 (11) 9(A) , No pain 12:38:31 64 19 98 131/67(102) NSR 0 (11) 10(A) , No pain 12:43:18 No Cuff NSR 0 (11) 10(A) , No pain Medications Time Medication Route Dose Verified Delivered Reason Notes Effectiveness by by 12:12:16 0.9% NaCl I.V. 100 Anastasia Anastasia used for ml/hr Leana Leana roller skate assembler RN 12:12:29 Oxygen NC 2 Anastasia Anastasia used for l/min Leana Leana roller skate assembler RN 12:14:33 Versed I.V. 1 mg Anastasia Anastasia for sedation Leana Leana RN RN 12:14:41 Fentanyl I.V. 50 Anastasia Anastasia for sedation mcg Leana Leana RN RN 12:15:41 Lidocaine 2% added 20ml Anastasia Anastasia for local to vial Leana Leana anesthetic field RN RN 12:15:57 Heparin Flush added 2 Anastasia Anastasia used for Bag to bags Leana Leana procedure (1000units/500ml field RN RN NS) 12:19:41 Versed I.V. 1 mg Anastasia Anastasia for sedation Leana Leana RN RN 12:19:55 Fentanyl I.V. 25 Anastasia Anastasia for sedation mcg Leana Leana RN RN 12:27:32 Heparin Bolus I.V. 4000 Jatinder Anastasia for verif ied units Chiara ALVARADO Leana anticoagulation with dr. CORKY guadarrama Procedure Log Time Note 11:41:04 Time tracking: Regular hours (M-F 7:00 - 5:00) 11:41:08 Plan of Care:Hemodynamics will remain stable., Cardiac rhythm will remain stable., Comfort level will be maintained., Respiratory function will remain adequate., Patient/ family verbilizes understanding of procedure., Procedure tolerated without complication., Recovers from procedure without complications.. 11:41:13 Signed procedure consent form obtained from patient. 11:41:25 H&P Date Dictated: 07/29/2017 Within 30 days and on chart.. 11:42:47 Lab Result : BUN 26 mg/dl 11:42:47 Lab Result : Creatinine 1.7 mg/dl 11:42:47 Lab Result : Hemoglobin 11.9 g/dl 11:43:33 Dayami Henry RT(R) sent for patient. Start room use. 11:55:12 Patient received from Med II to CCL 1 Alert and oriented. Tansferred to table in Supine position. 11:55:15 Warm blankets applied, and jitendra hugger turned on for patient comfort. 11:55:15 Correct patient and procedure confirmed by team. 11:55:16 ECG and BP/O2 sat monitors applied to patient. 11:55:17 Pre-procedure instructions explained to patient. 11:55:18 Pre-op teaching completed and patient verbalized understanding. 12:04:16 Vital chart was started 12:10:09 Baseline sample Acquired. 12:10:17 Rhythm: sinus rhythm 12:10:21 Full Disclosure recording started 12:10:35 Family unavailable. 12:10:37 Patient NPO since Midnight. 12:10:52 Patient allergic to Other allergyMoephine, Darvocet 12:10:54 Is the patient allergic to Iodine/contrast media? No. 12:10:57 Is patient on blood thinner?Yes 12:10:59 ACC The patient was administered the following blood thiners within the last 24 hours: ACCPlavix 12:11:05 Patient diabetic? No. 12:12:01 Previous problem with sedation/anesthesia? No ? 12:12:04 Snore? Yes 12:12:06 Sleep apnea? Yes 12:12:07 Deviated septum? No 12:12:08 Opens mouth fully? Yes 12:12:10 Sticks out tongue? Yes 12:12:16 0.9% NaCl 100 ml/hr I.V. was administered by Anastasia Dueñas RN; used for procedure; 12:12:16 Airway obstruction? Yes CODP 12:12:27 Dentures? Yes IN TIGHT 12:12:29 Oxygen 2 l/min NC was administered by Anastasia Dueñas RN; used for procedure; 12:12:34 Pre procedure: right dorsailis pedis pulse 2+ Normal; easily identifiable; not easily obliterated 12:12:36 Patient pain scale 0/10 ?. 12:12:48 IV patent on arrival in right hand with 0.9% NaCl at O. 12:12:50 Lab results completed and on chart. 12:12:58 Right groin area was prepped with chlora-prep and draped in sterile fashion 12:12:58 Alarms reviewed by R. N. 12:12:59 Sharps counted by scrub and verified by R.N. 12:13:02 Use device set Femoral Dx 12:13:11 ACIST Syringe (06757) opened to sterile field. 12:13:12 Bag Decanter (2002S) opened to sterile field. 12:13:14 ACIST Hand Control (35565) opened to sterile field. 12:13:14 ACIST Manifold (73903) opened to sterile field. 12:13:15 Tegaderm 4 x 4 (1626W) opened to sterile field. 12:13:16 Medline Cath Pack ([id number]) opened to sterile field. 12:13:17 DIAGNOSTIC WIRE .035 260cm J wire (189879) opened to sterile field. 12:13:18 DIAGNOSTIC Multipack 5Fr catheter set ([id number]) opened to sterile field. 12:13:23 SHEATH Prelude 5Fr 0.035 (PBZ-4H-26-035) opened to sterile field. 12:13:38 Physician arrived 12:13:38 --------ALL STOP TIME OUT------ 12:13:38 Final Timeout: patient, procedure, and site verified with staff and physician. All members of the team are in agreement. 12:13:41 Right groin site verified by team. 12:13:43 Physical assessment completed. ASA score P 2 - A patient with mild systemic disease as per Jatinder Guadarrama MD. 12:13:45 Sedation plan: IV Moderate Sedation Medication:Versed, Fentanyl 12:14:33 Versed 1 mg I.V. was administered by Anastasia Dueñas RN; for sedation; 12:14:41 Fentanyl 50 mcg I.V. was administered by Anastasia Dueñas RN; for sedation; 12:15:41 Lidocaine 2% 20ml vial added to field was administered by Anastasia Dueñas RN; for local anesthetic; 12:15:57 Heparin Flush Bag (1000units/500ml NS) 2 bags added to field was administered by Anastasia Dueñas RN; used for procedure; 12:16:29 Procedure started. 12:16:32 Local anesthetic to right femoral artery with Lidocaine 2% by Jatinder Guadarrama MD.INITIAL ACCESS ONLY 12:16:41 A 5 Fr sheath was inserted into the Right Femoral artery 12:16:58 Zero performed for pressure channel P1 12:19:37 AMPLATZ Super Stiff 75cm wire ([id number]) opened to sterile field. 12:19:41 Versed 1 mg I.V. was administered by Anastasia Dueñas RN; for sedation; 12::55 Fentanyl 25 mcg I.V. was administered by Anastasia Dueñas RN; for sedation; 12:20:12 AMPLATZ WIRE ADVANCED FOR SHEATH INSERTION. 12:20:24 PERCUTANEOUS ENTRY 19GA needle opened to sterile field. 12:20:28 A MULTIPACK Pigtail 5 Fr catheter was advanced over the wire and used for Procedure. 12:20:53 LV gram done using HER 12::55 Injector settings: Ml/sec: 10, Volume: 20, 12:21:20 EF : 35 % 12:21:23 Catheter exchanged over wire. 12:21:27 A MULTIPACK JL 4.0 5Fr catheter was advanced over the wire and used for Procedure. 12:22:00 LCA angiography performed. 12:22:54 INFLATOR Merit BasixCompak (EW1955) opened to sterile field. 12:22:55 SHEATH Prelude 6Fr 0.035 (CPG-1F-33-035) opened to sterile field. 12:24:50 GUIDE 5FR EBU 4.0 catheter ([id number]) opened to sterile field. 12:25:00 Mangum [place] IVUS Catheter (66907E) opened to sterile field. 12:25:24 CHOICE PT Extra Support 182cm wire ([id number]) opened to sterile field. 12:25:32 Catheter removed. 12:25:35 RCA angiography performed. 12:25:35 A MULTIPACK 3DRC 5Fr catheter was advanced over the wire and used for Procedure. 12:25:36 Catheter removed. 12:25:37 5 Fr ebu 4 guide catheter was inserted over the wire 12:25:40 CHOICE PT wire advanced. 12:26:12 Wire advanced across lesion. 12:26:43 IVUS catheter advanced over wire. 12:26:52 IVUS pass to LAD lesion performed. 12:27:32 Heparin Bolus 4000 units I.V. was administered by Anastasia Dueñas RN; for anticoagulation; verified with dr. guadarrama 12:28:51 IVUS catheter removed over wire. 12:30:18 Place stent Inflation Number: 1 A INTEGRITY 4.0 x 18 stent ([id number]) was prepped and advanced across the Prox LAD. The stent was deployed at 23 PAUL for 0:10 (min:sec). 12:31:30 Stent catheter was removed intact over wire. 12:31:31 Wire removed. 12:31:32 Guide catheter removed. 12:31:55 A MULTIPACK 3DRC 5Fr catheter was advanced over the wire and used for Procedure. 12:32:05 Right subclavian angiography performed 12:32:06 Right carotid angiography performed. 12:33:46 Left carotid angiography performed. 12:33:53 Catheter removed. 12:33:55 EXOSEAL 5Fr (EX500) opened to sterile field. 12:34:00 Sheath removed intact; hemostasis achieved with Exoseal to the Right Femoral artery. 12:34:02 Procedure ended.(Physican Out) 12:37:17 Contrast amount:Isovue 300 102ml. 12:37:20 Fluoroscopy time 04.60 minutes. 12:37:39 Fluoroscopy dose: 1020 mGy 12:37:39 Flurop Dose total: 1020 12:37:49 Sharps counted by scrub and verified by R.N. 12:37:51 Insertion/operative site no bleeding no hematoma. 12:38:00 Post-op/insertion site Right Femoral artery dressed using a 4 x 4 and Tegaderm. 12:38:05 Post right femoral artery:stable, soft, clean and dry 12:39:13 Post Procedure Pulses reassessed and unchanged 12:39:16 Post-procedure physical assessment completed. ASA score P 2 - A patient with mild systemic disease as per Jatinder Guadarrama MD. 12:39:18 Post procedure rhythm: unchanged. 12:39:22 Estimated blood loss: 10 ml 12:39:23 Post procedure instruction explained to patient.Patient verbalizes understanding. 12:39:24 Patient needs reinforcement of post procedure teaching. 12:40:01 Procedure type changed to Cath procedure, Diagnostic procedure, LHC, LHC w/Coronaries, FFR/IVUS, Intra-Coronary IVUS Initial, Sedation Charges, Moderate Sedation up to 15 minutes, PCI procedure, Coronary Stent, Coronary Stent Initial, Peripheral Cath Diagnostic Procedure, Cath Peripheral, Four Vessel Arteriogram 12:46:17 Procedure and supply charges have been captured, reviewed, submitted and are correct. 12:46:19 Procedure Complication : No complications 12:46:21 Vital chart was stopped 12:46:21 See physician's report for complete and final results. 12:46:23 Report given to Pre/Post Procedure Room. 12:46:25 Patient transfered to Pre/Post Procedure Room with Stretcher. 12:46:26 Procedure ended. 12:46:26 Full Disclosure recording stopped 12:46:37 End room use (Document Last) Intervention Summary Intervention Notes Time ActionType Lesion and Equipment Action# Pressure Duration Attributes Used 12:30:18 Place stent Prox LAD INTEGRITY 1 23 00:10 4.0 x 18 stent ([id number]) Device Usage Item Name Manufacture Quantity Catalog Number Hospital Part Current Minimal Lot# / Charge Number Stock Stock Serial# Code ACIST Syringe Acist 1 78684 219102 471113 [id number] 20 (84299) Medical Systems eReplicant Bag Decanter Microtek 1 2002S 998161 36040 100457 5 (2001S) Medical Inc. ACIST Hand Acist 1 07855 434221 599057 357355 5 Control (94564) Medical Systems Inc ACIST Manifold Acist 1 55597 699966 517320 817564 5 (86996) Medical Systems Inc Tegaderm 4 x 4 3M 1 1626W 029310 949818 263615 5 (1626W) Medline Cath Cardinal 1 [id number] 969157 03498 642998 5 Pack Health ([id number]) DIAGNOSTIC WIRE [facility] [place] 1 558842 276171 359143 930955 30 .035 260cm J wire (815898) DIAGNOSTIC Cardinal 1 JE8444 371120 97946 831386 30 Multipack 5Fr Health catheter set (MC1087) SHEATH Prelude Merit 1 YIT-8J-29-035 555505 768490 971796 5 5Fr 0.035 Medical (EHO-6L-61-035) AMPLATZ Super [place] 1 [id number] 934611 875074 801854 5 Stiff 75cm wire Scientific ([id number]) PERCUTANEOUS Cook Medical 1 T29305 361919 380909 5 ENTRY 19GA needle MULTIPACK Cardinal 1 279806 5 Pigtail 5 Fr Health catheter MULTIPACK JL Cardinal 1 035383 5 4.0 5Fr Health catheter INFLATOR Merit Merit 1 PI6890 980286 216303 498109 15 [facility] (QY9991) SHEATH Prelude Merit 1 EJJ-9Q-57-35 942040 5624460 989924 5 6Fr 0.035 Medical (MXC-8Z-02-035) GUIDE 5FR EBU Medtronic 1 [id number] 312899 590889 508004 1 4.0 catheter ([id number]) Mangum Mangum 1 [id number] 048615 213072 917160 8 [place] IVUS Catheter (50483Q) CHOICE PT Extra [place] 1 [id number] 488885 020537 364272 5 Support 182cm Scientific wire ([id number]) INTEGRITY 4.0 x Medtronic 1 [id number] 702890 799182 464114 5 [id number] 18 stent ([id number]) MULTIPACK 3DRC Cardinal 1 [id number] 5 5Fr catheter Health EXOSEAL 5Fr Cardinal 1 EX500 366916 690640 139337 10 (EX500) Health Signature Audit [place] Stage Time Signature Unsigned Intra-Procedure 07/30/2017 Ricky Weinstein 12:47:07 PM RT(R) Signatures Monitor : Ricky Weinstein RT Signature : Date : Time : [place] [id number] [place] [address]
--- NOTE | ~2017-07-27 | HP ---
PATIENT: SAE GALAVIZ MEDICAL RECORD: [id number] ACCOUNT: [id number] LOCATION:[address] : 41 ADMISSION DATE: 07/27/17 HISTORY AND PHYSICAL EXAMINATION REASON FOR ADMISSION: Chest pain. HISTORY OF PRESENT ILLNESS: The patient is a 77-year-old male with history of CAD. He has had previous non-ST elevation NJ a year ago with PTCA of the LAD by Dr. Guadarrama. He felt well since that time until this morning. He awakened feeling somewhat dizzy and then developed a squeezing left upper sternal chest pain that radiated into his back behind his shoulder blades. He took 2 out of date nitroglycerin without improvement in his symptoms. He came to the Emergency Room for this reason and stated that his pain had dissipated and he was given nothing by the ER physician. His initial EKG shows chronic bundle branch block. Initial cardiac enzymes were negative and he has now been admitted to the hospital for observation for cardiology purposes. He denies any recent exertional chest pain. He has seen Dr. Guadarrama in the last few months, felt to be cardiac stable. He has had chronic cough, but no recent sputum production. He denies dyspepsia. PAST MEDICAL HISTORY: Kidney stones, osteoarthritis, gout, obesity, obstructive sleep apnea, hyperlipidemia, remote smoker, quit over 20 years ago, non-ST elevation NJ, 08/17/2016, LAD stent placed 3-1/2 years ago and again July of 2016, history of CHF with EF of 35%, and also osteoarthritis. PAST SURGICAL HISTORY: Right shoulder repair and humeral fracture repair. FAMILY HISTORY: Positive for prostate cancer in his grandfather. ALLERGIES: None mentioned. SOCIAL HISTORY: Remote smoker, nondrinker. CURRENT HOME MEDICATIONS: Fenofibrate 160 mg a day, clopidogrel 75 mg a day, tramadol 50 mg q.6 hours for pain, amlodipine 5 mg daily, Coreg 3.125 mg p.o. b.i.d., losartan/HCT 50/12.5 one every morning, Uloric 40 mg a day, and pravastatin 40 mg with evening meal. REVIEW OF SYSTEMS: GENERAL: No fatigue or fever. HEENT: Some trouble with his hearing. No recent visual change, sinus congestion, or sore throat. RESPIRATORY: He has chronic exertional shortness of breath that is mild. He has shortness of breath at rest today with dizziness. No sputum production. CARDIAC: No exertional chest pain, but had rest pain today. It was squeezing in nature upper left sternal radiating behind his shoulder blades. He has not had any recent exertional pain recently. GASTROINTESTINAL: No nausea, vomiting, dyspepsia, change in stools or blood per rectum. GENITOURINARY: Nocturia once nightly. ENDOCRINE: Denies polyuria, polydipsia, heat or cold intolerance. NEUROLOGIC: No history of stroke, TIA, or vascular headaches. INTEGUMENT: No rash or itching. PSYCHIATRIC: Denies depressed mood. HISTORY AND PHYSICAL [id number] SAE GALAVIZ PHYSICAL EXAMINATION: GENERAL: Alert male, at this time, in no acute distress. VITAL SIGNS: Temperature 97.9 Fahrenheit orally, pulse 60 and regular, respirations are 18, blood pressure 128/70 with a sat 98% on room air. HEENT: Normocephalic. Eyes are clear. Oropharynx unremarkable. NECK: No bruits or masses. CHEST: Distant breath sounds without wheeze or rales. Chest wall is nontender. HEART: Regular rate and rhythm, without MGR. PMI appropriate. ABDOMEN: Soft, obese, nontender. GENITOURINARY: Deferred. MUSCULOSKELETAL: He has 1+ bipedal edema. He has crepitus in both knees with flexion and extension. INTEGUMENT: No petechiae or erythema noted. NEUROLOGIC: Oriented to person, place, and time. Cranial nerves grossly intact. Gait was not tested. LABORATORY DATA: Shows a white count 6400, H&H of 11.9 and 37.0 with normal diff. Chemistry shows BUN of 27, creatinine of 1.9, glucose of 119, nonfasting. Cardiac enzymes are negative times 2. Liver functions are normal. Cholesterol is 122, LDL 49, HDL 52. Ratio of 2.4. D-dimer 0.64. Chest x-ray shows mild atelectasis/scarring in the left lung base. Surgical screws noted in the proximal right humerus and right shoulder effusion noted. ASSESSMENT: 1. Chest pain suggestive of angina. 2. History of coronary artery disease with remote non-ST segment elevation myocardial infarction myocardial infarction. 3. Coronary artery disease, history of percutaneous transluminal coronary angioplasty of the left anterior descending times 2, last July of 2016. 4. Hypertension. 5. Hyperlipidemia. 6. Osteoarthritis. 7. Gout. 8. Obstructive sleep apnea. 9. Remote smoker. 10. Obesity. PLAN: The patient will be admitted to cardiac monitoring, serial enzymes have been obtained. We will have cardiology consult. We will place topical nitrates. Further workup pending clinical course. TRANSINT:[id number] Voice Confirmation ID: [id number] DOCUMENT ID: [id number] HISTORY AND PHYSICAL [id number] SAE GALAVIZ TIMOTHY MD at 2100 CC: [id number] DICTATION DATE: 07/27/171823 TOBACCO SWEEPER: 07/27/172117 ADM IN [facility] [address] [id number]
[~2017-07-27 09:01] MED LIST changes: +FENOFIBRATE160 MG PO; +HYZAAR 50-12.51 TAB PO; +ULORIC40 MG PO; +ULTRAM50 MG PO
[2017-07-27 09:48] LABS: BASOPHILS 0.3 % (0-2); HEMOGLOBIN 11.9 g/dL (13.5-17.5); IMMATURE GRANULOCYTES 0.8 % (0-5); LYMPHOCYTES 14.6 % (15-50); MCHC 32.2 g/dL (31.0-37.0); MCV 96.4 fL (80.0-100.0); MEAN PLATELET VOLUME 11.3 fL (7.4-10.4); MONOCYTES 6.2 % (2-11); NEUTROPHILS 74.1 % (40-80); PLATELET COUNT 232 10x3/uL (130-400); RBC 3.84 10x6/uL (4.20-6.10); RDW 13.6 % (11.5-14.5); WBC 6.4 10x3/uL (4.8-10.8)
[2017-07-27 10:04] LABS: ALBUMIN 3.4 g/dL (3.4-5.0); ALKALINE PHOSPHATASE 60 U/L (46-116); ALT (SGPT) 27 U/L (10-68); BILIRUBIN - TOTAL 0.47 mg/dL (0.2-1.3); CALC OSMOLALITY 284 mosm/kg (275-300); CALCIUM 9.4 mg/dL (8.5-10.1); CARBON DIOXIDE 23.2 mmol/L (21.0-32.0); CHLORIDE - SERUM 103 mmol/L (98-107); CREATININE - SERUM 1.9 mg/dL (0.6-1.3); GLUCOSE 119 mg/dL (74-106); POTASSIUM - SERUM 4.2 mmol/L (3.5-5.1); PROTEIN - SERUM 7.6 g/dL (6.4-8.2); SODIUM 139 mmol/L (136-145); UREA NITROGEN 29 mg/dL (7-18); eGFR NON AFRICAN AMERICAN 37 mL/min (90-120)
[2017-07-27 10:15] LABS: CHOL - HDL RATIO 2.4 ratio (2.3-4.9); CHOLESTEROL, TOTAL 122 mg/dL (0-200); CKMB 1.6 U/L (0.0-3.6); CREATINE KINASE 107 UL (21-232); HDL CHOLESTEROL 52 mg/dL (32-96); LDL CHOLESTEROL 49 mg/dL (0-100); LDL-HDL RATIO 0.9 ratio (1.5-3.5); TRIGLYCERIDE 107 mg/dL (30-200); TROPONIN-I 0.026 ng/mL (0.000-0.060)
[2017-07-27 13:28] LABS: CKMB 1.5 U/L (0.0-3.6); CREATINE KINASE 120 UL (21-232); TROPONIN-I 0.018 ng/mL (0.000-0.060)
[2017-07-27 17:30] VITALS: BP 132/69; Ht 185.4 cm; Wt 114.4 kg
[2017-07-27 18:58] LABS: CKMB 0.6 U/L (0.0-3.6); CREATINE KINASE 52 UL (21-232); TROPONIN-I < 0.017 ng/mL (0.000-0.060)
[2017-07-27 19:00] VITALS: BP 124/59
[2017-07-28] VITALS: BP 114/53
[2017-07-28 01:06] LABS: CKMB 1.7 U/L (0.0-3.6); CREATINE KINASE 153 UL (21-232); TROPONIN-I < 0.017 ng/mL (0.000-0.060)
[2017-07-28 04:00] VITALS: BP 123/61
[2017-07-28 06:09] LABS: BASOPHILS 0.2 % (0-2); EOSINOPHILS 6.5 % (0-7); HEMATOCRIT 34.7 % (42.0-54.0); HEMOGLOBIN 11.1 g/dL (13.5-17.5); IMMATURE GRANULOCYTES 0.6 % (0-5); LYMPHOCYTES 14.8 % (15-50); MCH 31.1 pg (26.0-34.0); MCV 97.2 fL (80.0-100.0); MEAN PLATELET VOLUME 11.2 fL (7.4-10.4); MONOCYTES 7.4 % (2-11); NEUTROPHILS 70.5 % (40-80); PLATELET COUNT 223 10x3/uL (130-400); RBC 3.57 10x6/uL (4.20-6.10); RDW 13.5 % (11.5-14.5); WBC 6.2 10x3/uL (4.8-10.8)
[2017-07-28 06:56] LABS: ALBUMIN 3.1 g/dL (3.4-5.0); ANION GAP 16.7 mmol/L (8-16); BILIRUBIN - TOTAL 0.4 mg/dL (0.2-1.3); CALCIUM 9.2 mg/dL (8.5-10.1); CARBON DIOXIDE 23.4 mmol/L (21.0-32.0); CREATININE - SERUM 2.3 mg/dL (0.6-1.3); POTASSIUM - SERUM 4.1 mmol/L (3.5-5.1); PROTEIN - SERUM 7.1 g/dL (6.4-8.2)
[2017-07-28 07:43] VITALS: BP 116/65
[2017-07-28 11:21] VITALS: BP 137/59
[2017-07-28 15:19] VITALS: BP 159/72
[2017-07-28 20:00] VITALS: BP 128/60
[2017-07-29] VITALS: BP 114/61
[2017-07-29 04:00] VITALS: BP 120/64
[2017-07-29 08:17] LABS: ANION GAP 15.2 mmol/L (8-16); CALCIUM 9.5 mg/dL (8.5-10.1); CARBON DIOXIDE 24.2 mmol/L (21.0-32.0); CREATININE - SERUM 1.8 mg/dL (0.6-1.3); POTASSIUM - SERUM 4.4 mmol/L (3.5-5.1)
[2017-07-29 09:10] VITALS: BP 120/60
[2017-07-29 12:00] VITALS: BP 117/57
[2017-07-29 16:37] VITALS: BP 148/62
[2017-07-29] MEDS ORDERED: ULORIC40 MG PO (20:16)
[2017-07-29 21:08] VITALS: BP 124/62
[2017-07-30] VITALS: BP 92/35
[2017-07-30 04:00] VITALS: BP 97/40
[2017-07-30 06:00] LABS: ANION GAP 13.6 mmol/L (8-16); CALCIUM 8.8 mg/dL (8.5-10.1); CARBON DIOXIDE 24.7 mmol/L (21.0-32.0); CREATININE - SERUM 1.7 mg/dL (0.6-1.3); POTASSIUM - SERUM 4.3 mmol/L (3.5-5.1)
[2017-07-30 08:27] VITALS: BP 135/85
[2017-07-30 16:51] VITALS: BP 137/66
== END 2017-07-30 18:28 | disposition home or self-care (01) ==
LOC: D.ER 09:01 → D.M2 14:20 → D.EDHOLD 14:20 → D.M2 14:28 → OBSVTIME 19:00 → D.M2 07-30 18:28
PROVIDERS: Family Medicine; Internal Medicine Interventional Cardiology
DX: I25.119 Atherosclerotic heart disease of native coronary artery with unspecified angina pectoris (principal); G47.33 Obstructive sleep apnea (adult) (pediatric); E66.9 Obesity, unspecified; E78.5 Hyperlipidemia, unspecified; I25.2 Old myocardial infarction; R42 Dizziness and giddiness; J44.0 Chronic obstructive pulmonary disease with (acute) lower respiratory infection; J44.1 Chronic obstructive pulmonary disease with (acute) exacerbation; J20.9 Acute bronchitis, unspecified; M10.062 Idiopathic gout, left knee; N17.9 Acute kidney failure, unspecified; Z87.891 Personal history of nicotine dependence

== ENCOUNTER 2017-12-26 04:03 | Inpatient (IN) | payer MEDICARE ==
[~2017-12-26] VITALS: Ht 185.4 cm; Wt 108.0 kg
[2017-12-26] MEDS ORDERED: PRINIVIL20 MG (04:15)
[2017-12-26 04:46] LABS: BASOPHILS 0.3 % (0-2); EOSINOPHILS 12.6 % (0-7); HEMATOCRIT 37.3 % (42.0-54.0); HEMOGLOBIN 11.8 g/dL (13.5-17.5); IMMATURE GRANULOCYTES 0.6 % (0-5); INR 0.97 (0.85-1.17); LYMPHOCYTES 16.3 % (15-50); MCH 30.6 pg (26.0-34.0); MCHC 31.6 g/dL (31.0-37.0); MCV 96.6 fL (80.0-100.0); MEAN PLATELET VOLUME 11.3 fL (7.4-10.4); MONOCYTES 5.5 % (2-11); NEUTROPHILS 64.7 % (40-80); PLATELET COUNT 215 10x3/uL (130-400); PROTIME 12.5 SECONDS (11.6-15.0); RBC 3.86 10x6/uL (4.20-6.10); RDW 13.7 % (11.5-14.5)
[2017-12-26 04:48] LABS: D-DIMER-QUANTITATIVE 0.86 ug/mLFEU (0.20-0.54)
[2017-12-26 04:57] LABS: ALBUMIN 3.3 g/dL (3.4-5.0); ALKALINE PHOSPHATASE 75 U/L (46-116); ALT (SGPT) 25 U/L (10-68); BILIRUBIN - TOTAL 0.32 mg/dL (0.2-1.3); CALC OSMOLALITY 288 mosm/kg (275-300); CALCIUM 9.6 mg/dL (8.5-10.1); CARBON DIOXIDE 28.4 mmol/L (21.0-32.0); CHLORIDE - SERUM 105 mmol/L (98-107); CREATININE - SERUM 1.7 mg/dL (0.6-1.3); GLUCOSE 175 mg/dL (74-106); POTASSIUM - SERUM 3.8 mmol/L (3.5-5.1); PROTEIN - SERUM 7.3 g/dL (6.4-8.2); SODIUM 139 mmol/L (136-145); UREA NITROGEN 33 mg/dL (7-18); eGFR NON AFRICAN AMERICAN 42 mL/min (90-120)
[2017-12-26 05:09] LABS: CKMB 1.8 U/L (0.0-3.6); CREATINE KINASE 61 UL (21-232); PRO BNP 684 pg/mL (0-450); TROPONIN-I 0.022 ng/mL (0.000-0.060)
[2017-12-26 07:01] LABS: TROPONIN-I 0.053 ng/mL (0.000-0.060)
[2017-12-26] MEDS ORDERED: IBUPROFEN200 MG PO (11:52)
[2017-12-26] MEDS ORDERED: CENTRUM COMPLE1 EACH PO (11:53)
[2017-12-26 12:51] LABS: CKMB 2.2 U/L (0.0-3.6); CREATINE KINASE 72 UL (21-232); TROPONIN-I 0.044 ng/mL (0.000-0.060)
[2017-12-26 16:05] VITALS: BMI 31.4
[2017-12-26 19:57] LABS: CKMB 2.6 U/L (0.0-3.6); CREATINE KINASE 77 UL (21-232)
[2017-12-26 21:47] VITALS: BP 136/57
[2017-12-27 06:13] VITALS: BP 145/62
[2017-12-27 06:26] LABS: BASOPHILS 0 % (0-2); EOSINOPHILS 0 % (0-7); HEMATOCRIT 32.8 % (42.0-54.0); HEMOGLOBIN 10.6 g/dL (13.5-17.5); IMMATURE GRANULOCYTES 0.8 % (0-5); LYMPHOCYTES 4.9 % (15-50); MCH 30.9 pg (26.0-34.0); MCHC 32.3 g/dL (31.0-37.0); MCV 95.6 fL (80.0-100.0); MEAN PLATELET VOLUME 11.5 fL (7.4-10.4); MONOCYTES 0.6 % (2-11); NEUTROPHILS 93.7 % (40-80); PLATELET COUNT 210 10x3/uL (130-400); RBC 3.43 10x6/uL (4.20-6.10); RDW 13.9 % (11.5-14.5)
[2017-12-27 06:30] LABS: WBC 9.7 10x3/uL (4.8-10.8)
[2017-12-27 06:45] LABS: ALBUMIN 3.2 g/dL (3.4-5.0); ANION GAP 10.5 mmol/L (8-16); BILIRUBIN - TOTAL 0.28 mg/dL (0.2-1.3); CALCIUM 9.1 mg/dL (8.5-10.1); CARBON DIOXIDE 27.6 mmol/L (21.0-32.0); CREATININE - SERUM 1.6 mg/dL (0.6-1.3); POTASSIUM - SERUM 4.1 mmol/L (3.5-5.1); PROTEIN - SERUM 6.9 g/dL (6.4-8.2)
[2017-12-27 08:48] VITALS: BP 149/74
[2017-12-27 15:26] VITALS: BP 123/87
[2017-12-27 21:53] VITALS: BP 135/65
[2017-12-28 04:34] VITALS: BP 133/69
[2017-12-28 08:08] VITALS: BP 128/77
[2017-12-28 12:12] VITALS: BP 132/73
[2017-12-28 12:31] VITALS: Ht 185.4 cm; Wt 108.0 kg
[2017-12-28 16:30] VITALS: BP 137/65
[2017-12-28 20:00] VITALS: BP 138/59
[2017-12-29] VITALS: BP 142/73
[2017-12-29 04:00] VITALS: BP 144/69
[2017-12-29 05:18] LABS: BASOPHILS 0 % (0-2); EOSINOPHILS 0 % (0-7); HEMATOCRIT 33.8 % (42.0-54.0); HEMOGLOBIN 11.1 g/dL (13.5-17.5); IMMATURE GRANULOCYTES 0.7 % (0-5); LYMPHOCYTES 3.9 % (15-50); MCHC 32.8 g/dL (31.0-37.0); MCV 94.4 fL (80.0-100.0); MEAN PLATELET VOLUME 11.6 fL (7.4-10.4); MONOCYTES 3.3 % (2-11); NEUTROPHILS 92.1 % (40-80); PLATELET COUNT 221 10x3/uL (130-400); RBC 3.58 10x6/uL (4.20-6.10); RDW 13.5 % (11.5-14.5); WBC 11.2 10x3/uL (4.8-10.8)
[2017-12-29 05:33] LABS: ANION GAP 10.9 mmol/L (8-16); CALCIUM 8.8 mg/dL (8.5-10.1); CREATININE - SERUM 1.7 mg/dL (0.6-1.3); POTASSIUM - SERUM 3.9 mmol/L (3.5-5.1)
[2017-12-29 09:39] VITALS: BP 132/80
[2017-12-29 12:48] VITALS: BP 145/84
[2017-12-29 16:48] VITALS: BP 142/66
[2017-12-29 20:00] VITALS: BP 152/78
[2017-12-30] VITALS: BP 128/58
[2017-12-30 04:00] VITALS: BP 129/57
[2017-12-30 08:46] VITALS: BP 153/82
[2017-12-30 12:48] VITALS: BP 145/77
[2017-12-30] MEDS ORDERED: IPRAT-ALBUT 0.5-3 ML INH (13:00)
[2017-12-30] MEDS ORDERED: COZAAR50 MG PO (13:01)
[2017-12-30] MEDS ORDERED: PLAVIX75 MG PO (13:01)
[2017-12-30] MEDS ORDERED: NORVASC5 MG PO (13:01)
[2017-12-30] MEDS ORDERED: ULORIC40 MG PO (13:02)
[2017-12-30] MEDS ORDERED: VENTOLIN HFA18 GM INH (13:02)
[2017-12-30] MEDS ORDERED: ZITHROMAX250 MG PO (13:03)
[2017-12-30] MEDS ORDERED: MEDROL DOSE PACK4 MG PO (13:04)
== END 2017-12-30 17:49 | disposition home or self-care (01) | DRG 192 ==
LOC: D.ER 04:03 → D.MS 06:37
PROVIDERS: Family Medicine
DX: J44.1 Chronic obstructive pulmonary disease with (acute) exacerbation (principal); M10.9 Gout, unspecified; G47.33 Obstructive sleep apnea (adult) (pediatric); I11.0 Hypertensive heart disease with heart failure; I50.9 Heart failure, unspecified

== ENCOUNTER 2018-04-11 20:25 | Inpatient (IN) | payer MEDICARE ==
[~2018-04-11] VITALS: Ht 185.4 cm; Wt 104.5 kg
[~2018-04-11 20:25] MED LIST changes: +CENTRUM COMPLE1 EACH PO; +COZAAR50 MG PO; +IPRAT-ALBUT 0.5-3 ML INH; +MEDROL DOSE PACK4 MG PO; +PRINIVIL20 MG; +VENTOLIN HFA18 GM INH; +ZITHROMAX250 MG PO
[2018-04-11 21:12] LABS: BASOPHILS 0.1 % (0-2); EOSINOPHILS 0.2 % (0-7); HEMATOCRIT 34.3 % (42.0-54.0); HEMOGLOBIN 11.4 g/dL (13.5-17.5); IMMATURE GRANULOCYTES 0.4 % (0-5); MCH 31.8 pg (26.0-34.0); MCHC 33.2 g/dL (31.0-37.0); MCV 95.5 fL (80.0-100.0); MEAN PLATELET VOLUME 11.2 fL (7.4-10.4); MONOCYTES 6.3 % (2-11); PLATELET COUNT 178 10x3/uL (130-400); RBC 3.59 10x6/uL (4.20-6.10); WBC 13.6 10x3/uL (4.8-10.8)
[2018-04-11 21:27] LABS: APPEARANCE CLEAR (CLEAR); BILIRUBIN NEGATIVE (NEGATIVE); COLOR YELLOW (YELLOW); GLUCOSE NEGATIVE (NEGATIVE); KETONE NEGATIVE (NEGATIVE); NITRITE POSITIVE (NEGATIVE); PROTEIN 1+ mg/dL (NEGATIVE); SPECIFIC GRAVITY 1.015 (1.005-1.020); UROBILINOGEN NORMAL (NORMAL)
[2018-04-11 21:28] LABS: ANION GAP 13.9 mmol/L (8-16); BILIRUBIN - TOTAL 0.79 mg/dL (0.2-1.3); CALCIUM 8.8 mg/dL (8.5-10.1); CARBON DIOXIDE 26.4 mmol/L (21.0-32.0); CREATININE - SERUM 1.9 mg/dL (0.6-1.3); POTASSIUM - SERUM 3.3 mmol/L (3.5-5.1); PROTEIN - SERUM 6.6 g/dL (6.4-8.2)
[2018-04-11 21:29] LABS: BACTERIA FEW /hpf (NONE SEEN)
[2018-04-11 22:01] VITALS: BP 138/73
[2018-04-11 22:39] LABS: CKMB 0.6 U/L (0.0-3.6); CREATINE KINASE 76 UL (21-232); TROPONIN-I 0.017 ng/mL (0.000-0.060)
--- NOTE | 2018-04-11 23:08 | NUR ---
PER EDP REYNA PT IS ALLOWED TO TAKE HOME MEDICATION (PRAVASTATIN, AMLODIPINE, LISINOPRIL hctz, ULORIC AND CARVEDILOL.).
[2018-04-11 23:11] VITALS: BP 128/71
--- NOTE | 2018-04-11 23:12 | NUR ---
PT LAYING IN BED, TALKING WITH FAMILY MEMBERS AT BEDSIDE. NO DISTRESS NOTED AT THIS TIME. COLOR WNL FOR RACE. IV PATENT WITH NO SIGNS OF INFILTRATION NOTED. PT RECEIVING 2L O2 VIA NC. WILL CONTINUE TO MONITOR. UPDATED FAMILY ON PT PLAN OF CARE AND STATUS AT THIS TIME.
--- NOTE | 2018-04-11 23:24 | NUR ---
PT TRANSPORTED TO CT AT THIS TIME.
--- NOTE | 2018-04-11 23:39 | NUR ---
AWAITING SECOND SET OF BLOOD CULTURES AT THIS TIME. PT RETURNED FROM CT VIA W/C.
--- NOTE | 2018-04-12 01:22 | NUR ---
ROCEPHIN STOPPED AT THIS TIME
[2018-04-12] MEDS ORDERED: IBUPROFEN400 MG PO (02:08)
--- NOTE | 2018-04-12 02:25 | NUR ---
PT RECIEVED TO THE UNIT FROM ER VIA WC PROPELLED BY STAFF. ADMITTED TO ROOM [address] CARRERA. PT IS ALERT AND ORIENTED X 3. VOICES COMPLAINT OF SOB AND FREQUENT URINATION. ADMIT PROCESS DONE AND MED REC FINISHED. PT VOICED NEED TO SLEEP. SR'S ARE UP X 2 IN BED. CALL LIGHT AND BEDSIDE TABLE ARE WITHIN EASY REACH. FAMILY LEAVING TO GO HOME. HOME MEDS SENT WITH FAMILY.
[2018-04-12 03:05] VITALS: BP 109/58
[2018-04-12 05:55] VITALS: BP 103/54
[2018-04-12 06:22] VITALS: BP 103/54; BMI 31.7
[2018-04-12 06:27] LABS: BASOPHILS 0 % (0-2); EOSINOPHILS 0.3 % (0-7); HEMATOCRIT 32.3 % (42.0-54.0); HEMOGLOBIN 10.3 g/dL (13.5-17.5); IMMATURE GRANULOCYTES 0.3 % (0-5); LYMPHOCYTES 4.3 % (15-50); MCH 30.7 pg (26.0-34.0); MCHC 31.9 g/dL (31.0-37.0); MCV 96.4 fL (80.0-100.0); NEUTROPHILS 86.1 % (40-80); PLATELET COUNT 180 10x3/uL (130-400); RBC 3.35 10x6/uL (4.20-6.10); WBC 14.2 10x3/uL (4.8-10.8)
[2018-04-12 07:00] LABS: CALC OSMOLALITY 285 mosm/kg (275-300); CALCIUM 8.5 mg/dL (8.5-10.1); CARBON DIOXIDE 27.1 mmol/L (21.0-32.0); CHLORIDE - SERUM 101 mmol/L (98-107); CKMB 0.8 U/L (0.0-3.6); CREATINE KINASE 58 UL (21-232); CREATININE - SERUM 2.2 mg/dL (0.6-1.3); GLUCOSE 119 mg/dL (74-106); POTASSIUM - SERUM 3.3 mmol/L (3.5-5.1); PRO BNP 2374 pg/mL (0-450); SODIUM 138 mmol/L (136-145); TROPONIN-I 0.021 ng/mL (0.000-0.060); UREA NITROGEN 37 mg/dL (7-18); eGFR NON AFRICAN AMERICAN 31 mL/min (90-120)
[2018-04-12 08:01] VITALS: BP 109/56
--- NOTE | 2018-04-12 09:41 | NUR ---
RESTS WITH EYES CLOSED. RESP UL ON . CALL LIGHT IN DOM. WILL MONITOR NEEDS.
--- NOTE | 2018-04-12 09:48 | NUR ---
ASSESSMENT DONE. DENIES NEEDS.
[2018-04-12 12:54] VITALS: Ht 185.4 cm; Wt 104.5 kg
[2018-04-12 15:46] VITALS: BP 121/63
[2018-04-12 17:00] VITALS: BP 109/55
--- NOTE | 2018-04-12 17:02 | NUR ---
WITHOUT CHANGES OR DISTRESS NOTED AT THIS TIME. DENIES NEEDS.
--- NOTE | 2018-04-12 20:00 | NUR ---
INITIAL ROUNDS AND ASSESSMENT COMPLETED. PT UP AND ABOUT ROOM. IVF .45NS @ 75ML/HR INFUSING TO LEFT WRIST. PT ALERT/ORIENTED. DENIES PAIN OR DISCOMFORT. MONITOR AND CPOC.
[2018-04-13] VITALS: BP 107/59
--- NOTE | 2018-04-13 03:52 | NUR ---
PT AWAKE AND READING. C/O POSSIBLE LEAKING FROM HIS IV. ASSESSED IV SITE AND DID NOT NOTE ANY LEAKING AT THIS TIME. WILL CONTINUE TO MONITOR AND RESIST IV IF NEEDED.
[2018-04-13 04:00] VITALS: BP 112/57
[2018-04-13 04:40] LABS: BASOPHILS 0.1 % (0-2); EOSINOPHILS 2.3 % (0-7); HEMATOCRIT 31.5 % (42.0-54.0); IMMATURE GRANULOCYTES 0.3 % (0-5); LYMPHOCYTES 7.8 % (15-50); MCH 30.6 pg (26.0-34.0); MCHC 31.7 g/dL (31.0-37.0); MCV 96.3 fL (80.0-100.0); MEAN PLATELET VOLUME 11.6 fL (7.4-10.4); MONOCYTES 10.1 % (2-11); NEUTROPHILS 79.4 % (40-80); PLATELET COUNT 158 10x3/uL (130-400); RBC 3.27 10x6/uL (4.20-6.10); RDW 13.9 % (11.5-14.5)
[2018-04-13 05:03] LABS: WBC 8.7 10x3/uL (4.8-10.8)
[2018-04-13 05:06] LABS: ANION GAP 10.9 mmol/L (8-16); CALCIUM 8.3 mg/dL (8.5-10.1); CARBON DIOXIDE 27.7 mmol/L (21.0-32.0); CREATININE - SERUM 2.2 mg/dL (0.6-1.3); POTASSIUM - SERUM 3.6 mmol/L (3.5-5.1)
[2018-04-13 09:10] VITALS: BP 116/64
[2018-04-13 11:53] VITALS: BP 110/74
--- NOTE | 2018-04-13 13:29 | EC ---
PATIENT:SAE GALAVIZ DATE OF SERVICE: 04/11/18 SEX: M MEDICAL RECORD: [id number] DATE OF : 42 LOCATION:D.M2 D.212 AGE OF PATIENT: 77 ADMISSION DATE: 04/11/18 REFERRING PHYSICIAN: INTERPRETING PHYSICIAN: SERENA GUADARRAMA MD ECHOCARDIOGRAM REPORT ECHO CHARGES 4 ECHO COMPLETE Date: 04/12/18 CLINICAL DIAGNOSIS: CHF ECHOCARDIOGRAPHIC MEASUREMENTS (adult normal given) AC root (d.<3.7cm) 3.7 cm LV Septum d (<1.2 cm> 1.5 cm Valve Excursion 2.2 cm LV Septum (systole) 2.3 cm Left Atria (s.<4.0cm> 4.6 cm LVPW d(<1.2cm) 1.6 cm RV (d.<2.3cm) 4.4 cm LVPW (sytole) 2.3 cm LV diastole(<5.6CM) 6.6 cm MV E-F(>70mm/sec) cm LV systole 4.1 cm LVOT Diameter 2.2 cm MV exc.(>10mm) cm Est.ejection fraction (50-75%) % DOPPLER: LVIT cm/sec A 107 cm/sec E 92.0 cm/sec LA cm/sec RVSP 25.0 mmHg LVOT 118 cm/sec AOP1/2T m/s Asc. Ao 165 cm/sec RVOT 65.0 cm/sec RA cm/sec PA 110 cm/sec AV Gradient Peak 11.0 mmHg AV Mean 6.0 mmHg AV Area 2.5 cm MV Gradient Peak 6.0 mmHg MV Mean 2.0 mmHg MV Area cm COMMENTS: Australian Rules Footballer: Brandon BLACKWOODOE Transcribing Machine Mechanic: 1 Dr. Guadarrama TAPE# PACS Pericardial Effusion N DATE OF SERVICE: 04/12/2018 PROCEDURE: Echocardiogram. FINDINGS: 1. Left ventricular chamber size is dilated. Left ventricular systolic function is moderately reduced, overall ejection fraction in the 35% range. 2. Left atrium is enlarged at 4.6 cm. Right atrium and right ventricle chamber sizes are as well moderately dilated. 3. Valvular structures have normal structure and motion. ECHOCARDIOGRAM REPORT [id number] SAE GALAVIZ 4. Doppler interrogation reveals trace mitral regurgitation, mild tricuspid regurgitation, no other valvular insufficiency or stenosis. Pulmonary systolic pressure is estimated at 25 mmHg. 5. No evidence of pericardial effusion or left ventricular thrombus. TRANSINT:[id number] Voice Confirmation ID: [id number] DOCUMENT ID: [id number] SERENA GUADARRAMA MD at 1329 CC: [id number] DICTATION DATE: 04/13/18 1223 ELECTRIC POWER LINE REPAIRER: 04/13/[address] [facility] [address] [id number]
[2018-04-13 15:52] VITALS: BP 112/60
--- NOTE | 2018-04-13 18:36 | NUR ---
ALERT AND ORIENTED X4. NO CHANGE. DENIES ANY NEEDS. CONTINUE PLAN OF CARE AND SAFETY PRECAUTIONS.
[2018-04-13 19:00] VITALS: BP 123/63
--- NOTE | 2018-04-13 20:43 | NUR ---
RESUMING PATIENT CARE. PATIENT IS ALERT AND ORIENTED. RESPIRATIONS ARE EVEN AND UNLABORED. NO S/S OF DISTRESS. NO C/O PAIN. PATIENT DENIES NEEDS AT THIS TIME. CALL LIGHT WITHIN REACH. WILL CPOC.
[2018-04-14] VITALS: BP 122/62
[2018-04-14 04:00] VITALS: BP 128/62
[2018-04-14 06:14] LABS: ANION GAP 13.9 mmol/L (8-16); CALCIUM 8.5 mg/dL (8.5-10.1); CARBON DIOXIDE 25.8 mmol/L (21.0-32.0); CREATININE - SERUM 1.9 mg/dL (0.6-1.3); POTASSIUM - SERUM 3.7 mmol/L (3.5-5.1)
[2018-04-14] MEDS ORDERED: LEVOFLOXACIN500 MG PO (07:36)
[2018-04-14] MEDS ORDERED: COREG 3.1253.125 MG PO (07:42)
--- NOTE | 2018-04-14 07:43 | HP ---
PATIENT: SAE GALAVIZ MEDICAL RECORD: [id number] ACCOUNT: [id number] LOCATION:[address] : 41 ADMISSION DATE: 04/11/18 PCP: NENA CARRERA MD HISTORY AND PHYSICAL EXAMINATION REASON FOR ADMISSION: Shortness of breath, left flank pain, and lower abdominal pain. He noted some blood in his urine last evening with some malodorous urine. He has had history of kidney stones, but did not feel like that was what was his symptoms. He is on updrafts at home and said that his breathing has been little short, but has not had significant off-colored sputum production. PAST MEDICAL HISTORY: Nephrolithiasis; osteoarthritis; gout; obesity; obstructive sleep apnea; hyperlipidemia; remote nicotine abuse, quit 22 years ago; non-ST elevation [place] on 08/17/2016 with LAD stent placed in 2012 and again in July of 2016; and history of CHF with EF of 35%. PAST SURGICAL HISTORY: Right shoulder repair, numerous fracture repairs, and PTCA times 2 of LAD. FAMILY HISTORY: Positive for prostate cancer in his grandfather. SOCIAL HISTORY: He is remote smoker, nondrinker. He has family living locally. He is a . His previously. ALLERGIES: MORPHINE AND DARVOCET-N CAUSING HALLUCINATIONS. HOME MEDICATIONS: DuoNeb updrafts q.i.d., Ventolin inhaler HFA two puffs q.i.d. p.r.n. rescue, Plavix 75 mg p.o. daily, TriCor 145 mg daily, pravastatin 40 mg at bedtime, Nitrostat 0.4 mg sublingual p.r.n. chest pain, amlodipine 5 mg daily, Cozaar 100 mg daily, aspirin 81 mg daily, ibuprofen 400 mg b.i.d. p.r.n. musculoskeletal pain, and Uloric 40 mg p.o. daily. REVIEW OF SYSTEMS: GENERAL: He has been fatigued for last several days. Denies fever. HEENT: No recent visual change, sinus congestion, or sore throat. He is somewhat hard of hearing. RESPIRATORY: He has had intermittent cough, minimally productive. No hemoptysis. He has been mildly short of breath on exertion, which is his baseline. CARDIAC: Denies chest pain, palpitations, or increasing edema. GASTROINTESTINAL: No nausea, vomiting, change in stools, or blood per rectum. He has had some intermittent abdominal pain in left lower flank and quadrant. GENITOURINARY: Nocturia once nightly. He has had a little blood in his urine and some dysuria recently. Urine has been malodorous. INTEGUMENT: No rash or itching. MUSCULOSKELETAL: He has chronic lumbago and right shoulder pain. No recent gout episodes. NEUROLOGIC: Denies headache, motor or sensory deficits, headaches, or history of seizures. PSYCHIATRIC: Denies depressed mood. PHYSICAL EXAMINATION: VITAL SIGNS: Show temperature of 99 degrees Fahrenheit, pulse 80 and regular, respirations are 20, blood pressure 124/73, and sat of 97% on room air. GENERAL: The patient is alert, oriented, and in no acute distress. HISTORY AND PHYSICAL [id number] SAE GALAVIZ HEENT: Unremarkable. Eyes are clear. EOMI. Nose and throat clear. NECK: Supple without bruits. CHEST: Clear with distant breath sounds bilaterally. No rales are noted. Only faint wheezes on forced expiration bilaterally. He is not retracting. His right shoulder girdle shows evidence of previous right shoulder surgery. CARDIOVASCULAR: Regular rate without MGR. PMI appropriate. ABDOMEN: Soft, obese, and nontender. No organomegaly. Somewhat tender in left lower quadrant without rebound. Left flank is 2+ tender. No rashes noted. EXTREMITIES: Show postoperative changes in the right shoulder. He has crepitus in both knees. No significant edema. INTEGUMENT: No rash or itching. LYMPH: Negative for abnormal lymphadenopathy. NEUROLOGIC: Oriented to person, place, and time. Cranial nerves II through XII intact. Speech is normal. No obvious motor deficit except for decreased range of motion on abduction of his right shoulder that is postoperative. Gait is normal. PSYCH: He is oriented. He has no homicidal or suicidal thoughts. Denies depressed mood. LABORATORIES: Show potassium of 3.3, BUN and creatinine of 33 and 1.9, and glucose 121. ProBNP is 1937. White count is 13,600, H&H of 11.4 and 34.3 respectively. Urinalysis shows 1+ protein, 2+ blood, 5-10 red cells, 10-25 white cells, and few bacteria. IMAGING DATA: Chest x-ray; slight blunting of the left costophrenic angle. Old posttraumatic and postsurgical changes in the right shoulder girdle. Old right rib fractures are noted, healed. Postsurgical changes of the cervical spine are noted, otherwise unremarkable. Emergency Room initially cultured the patient and placed him on Rocephin and Zithromax IV. ASSESSMENT: 1. Urinary tract infection with hematuria. 2. Flank pain, possible left nephrolithiasis versus pyelo. 3. Hypokalemia. 4. Hypertension. 5. History of non-STEMI with PTCA times 2 of LAD. 6. Gout. 7. COPD, stable. PLAN: I doubt he is in congestive failure at this time. He also has minimal elevation of his BNP. We will cancel cardiology consult and place on monitor. Decrease his fluids currently and stop the Lasix that was started. We will obtain CT of abdomen and pelvis, renal protocol, to rule out kidney stone. Continue antibiotics currently. TRANSINT:[id number] Voice Confirmation ID: [id number] DOCUMENT ID: [id number] HISTORY AND PHYSICAL [id number] SAE GALAVIZ TIMOTHY MD at 0743 CC: [id number] DICTATION DATE: 04/12/18 174 DAIRY FARM WORKER: 04/12/18 1907 ADM IN [facility] [address] [id number]
[2018-04-14 07:55] VITALS: BP 137/69
--- NOTE | 2018-04-14 07:58 | NUR ---
REPORT RECEIVED. WILL CONTINUE WITH POC. PT CURRENTLY LYING SEMI FOWLERS. CALL LIGHT W/I REACH. PT IS AAO AND UP AD VIVIENNE. RR EVEN AND UNLABORED ON 2L 02. 1/2NS INFUSING @KVO VIA R.FOR PIV. PT DENIES ANY NEEDS AT THIS TIME. WILL CTM
--- NOTE | 2018-04-14 09:56 | NUR ---
IV PATENT. CALL LIGHT IN REACH. WILL CONT. PLAN OF CARE.
[2018-04-14 11:14] VITALS: BP 126/68
--- NOTE | 2018-04-14 12:12 | NUR ---
PT DISCHARGED HOME VIA AMBULATORY WITH FAMILY. PT REFUSED WHEELCHAIR. PIV REMOVED WITH CATHETER TIP FULLY INTACT. PT SIGNED PROPER DISCHARGE MEDICATION AND REMOVED ALL VALUABLES FROM THE ROOM.
--- NOTE | 2018-04-14 15:40 | MORECARE ---
CASE MANAGEMENT DISCHARGE SUMMARY PATIENT: MUSTAPHA GALAVIZ UNIT: [id number] ADM DATE: 04/11/18 AGE: 77 : 41 SEX: M ROOM/BED: D.2124 AUTHOR: PIOTR SANTIAGO PHYSICIAN: REFERRING PHYSICIAN: NENA CARRERA MD DATE OF SERVICE: 04/14/18 Discharge Plan Patient Name: MUSTAPHA GALAVIZ Facility: [facility]:[place] : 1940 Planned Disposition: Home Anticipated Discharge Date: 04/14/18 Discharge Date: 04/14/2018 Expected LOS: 3 Initial Reviewer: [email or web address] Initial Review Date: 04/14/2018 Generated: 04/14/18 4:40 pm DCPIA - Discharge Planning Initial Assessment Updated by [email or web address]: Mustapha Carl on 04/14/18 3:38 pm * Is the patient Alert and Oriented? Yes * How many steps to enter\exit or inside your home? * PCP DR. CARRERA * Pharmacy [facility] * Preadmission Environment Home Alone * ADLs Independent * Equipment Bedside Commode Cane CPAP Nebulizer Walker * Other Equipment [facility] PATIENT - MEDICAL EQUIPMENT PROVIDER PREFERENCE * List name and contact numbers for known caregivers / representatives who currently or will assist patient after discharge: JACKY GALAVIZ, DTR, [employer], GIRLFRIEND, * Verbal permission to speak to the caregivers and representatives has been obtained from the patient. N/A * Community resources currently utilized None * Please name any agencies selected above. NONE * Additional services required to return to the preadmission environment? No * Can the patient safely return to the preadmission environment? Yes * Has this patient been hospitalized within the prior 30 days at any hospital? No Patient Name: MUSTAPHA GALAVIZ Page [id number] at 1540 All edits/amendments must be made on the electronic document DICTATION DATE: 04/14/181538 LASER SPECIALIST: SAURABH 04/14/18 153 RPT#: [id number] DC DATE:04/14/18 STATUS: DIS IN [facility] [address] [place] [address] END OF REPORT
--- NOTE | 2018-04-14 15:48 | MORECARE ---
CASE MANAGEMENT DISCHARGE SUMMARY PATIENT: MUSTAPHA GALAVIZ UNIT: [id number] ADM DATE: 04/11/18 AGE: 77 : 41 SEX: M ROOM/BED: D.1924 AUTHOR: PIOTR SANTIAGO PHYSICIAN: REFERRING PHYSICIAN: NENA CARRERA MD DATE OF SERVICE: 04/14/18 Discharge Plan Patient Name: MUSTAPHA GALAVIZ Facility: [facility]:[place] : 1940 Planned Disposition: Home Anticipated Discharge Date: 04/14/18 Discharge Date: 04/14/2018 Expected LOS: 3 Initial Reviewer: [email or web address] Initial Review Date: 04/14/2018 Generated: 04/14/18 4:48 pm Comments DCP- Discharge Planning Updated by [email or web address]: Mustapha Carl on 04/14/18 2:[address] Patient Name: MUSTAPHA GALAVIZ Admission Status: ER Accout number: [id number] Admission Date: 04-11-2018 : 1940 Admission Diagnosis:SHORTNESS OF BREATH Attending: NENA CARRERA Current LOS: 3 Anticipated DC Date: 04-14-2018 Planned Disposition: Home Primary Insurance: MEDICARE A & B Discharge Planning Comments: CM MET WITH PT IN ROOM TO DISCUSS DISCHARGE PLANNING AND NEEDS. PT REPORTS LIVING AT HOME INDEPENDENTLY WITH ADULT DAUGHTER. PT HAS BEDSIDE COMMODE, CANE, CPAP, NEBULIAER, AND STANDARD WALKER FROM [facility] PATIENT. PT HAS NO OUTSIDE SERVICES ASSISTING IN THE HOME. CM DISCUSSED AVAILABILITY OF HOME HEALTH, REHAB SERVICES AND MEDICAL EQUIPMENT. PT DENIES DISCHARGE NEEDS, REPORTS HIS DAUGHTER WILL PICK HIM UP FOR DISCHARGE HOME TODAY. IMPORTANT MESSAGE FROM MEDICARE PROVIDED AND EXPLAINED. PROFESSOR OF RHETORIC NURSE NOTIFIED. Medical Biller: Mustapha Carl DCPIA - Discharge Planning Initial Assessment Updated by [email or web address]: Mustapha Carl on 04/14/18 3:38 pm * Is the patient Alert and Oriented? Yes * How many steps to enter\exit or inside your home? * PCP DR. CARRERA * Pharmacy [facility] * Preadmission Environment Home Alone * ADLs Independent * Equipment Bedside Commode Cane CPAP Nebulizer Walker * Other Equipment [facility] PATIENT - MEDICAL EQUIPMENT PROVIDER PREFERENCE * List name and contact numbers for known caregivers / representatives who currently or will assist patient after discharge: JACKY GALAVIZ, DTR, [employer], GIRLFRIEND, * Verbal permission to speak to the caregivers and representatives has been obtained from the patient. N/A * Community resources currently utilized None * Please name any agencies selected above. NONE * Additional services required to return to the preadmission environment? No * Can the patient safely return to the preadmission environment? Yes * Has this patient been hospitalized within the prior 30 days at any hospital? No Coverage Notice Reviewer: [email or web address] - Mustapha Carl Notice Issued Date-Time: 04/14/2018 9:40 Notice Type: IM Discharge Notice Notice Delivered To: Patient Relationship to Patient: Delivery Person Name: Delivery Method: HAND - Hand Delivered Sheba Days: Prior Verbal Notification: Recipient Understood Notice: Yes Recipient Signature: Yes Med Rec Note Co-signed by Attending: Coverage Notice Comment: Last DP export: 04/14/18 2:40 p Patient Name: MUSTAPHA GALAVIZ Page [id number] at 1548 All edits/amendments must be made on the electronic document DICTATION DATE: 04/14/18 1548 BLOW TORCH BURNER: SAURABH 04/14/18 1548 RPT#: [id number] DC DATE:04/14/18 STATUS: DIS IN [facility] [address] [place] [address] END OF REPORT
== END 2018-04-14 12:13 | disposition home or self-care (01) | DRG 690 ==
LOC: D.ER 20:25 → D.M2 23:40
PROVIDERS: Family Medicine; ADMIT Family Medicine
DX: N39.0 Urinary tract infection, site not specified (principal); I50.22 Chronic systolic (congestive) heart failure; I11.0 Hypertensive heart disease with heart failure; E87.6 Hypokalemia; J44.9 Chronic obstructive pulmonary disease, unspecified; I10 Essential (primary) hypertension; E66.9 Obesity, unspecified; G47.33 Obstructive sleep apnea (adult) (pediatric); E78.5 Hyperlipidemia, unspecified; N28.1 Cyst of kidney, acquired; Z87.891 Personal history of nicotine dependence; Z68.31 Body mass index [BMI] 31.0-31.9, adult; B96.20 Unspecified Escherichia coli [E. coli] as the cause of diseases classified elsewhere

== ENCOUNTER → 2019-10-17 13:38 | Outpatient (CLI) | payer MEDICARE ==
[2018-04-12 12:54] VITALS: BMI 31.6
[~2019-10-17 13:38] MED LIST changes: +IBUPROFEN400 MG PO; +LEVOFLOXACIN500 MG PO
== END | disposition home or self-care (01) ==
LOC: D.HCCECHO 13:38
PROVIDERS: ATTEND Internal Medicine Cardiovascular Disease
DX: I25.10 Atherosclerotic heart disease of native coronary artery without angina pectoris (principal)

== ENCOUNTER 2019-11-16 11:38 | Day surgery (SDC) | payer MEDICARE ==
[~2019-11-16] VITALS: Ht 185.4 cm; Wt 97.7 kg
--- NOTE | ~2019-11-16 | HEMODYNAMI ---
PATIENT:SAE GALAVIZ MEDICAL RECORD: [id number] : 42 LOCATION:D.CAT ADMISSION DATE: 11/16/19 Generatedon:11/16/201913:40 Patient name: SAE GALAVIZ Patient #: [id number] SSN: [id number] : 1940 Date of study: 11/16/2019 Page: Of Hemodynamic Procedure Report Patient Data Patient Demographics Procedure consent was obtained First Name: SAE Gender: Male Last Name: ANASTACIA : 1940 Middle Initial: CAITLYN Age: 79 year(s) Patient #: [id number] Race: SSN: [id number] Additional ID: [id number] Contact details Address: [address] [place], [place] [address] State: [place] City: [place] Zip code: [address] Past Medical History Allergies Allergen Reaction Date Comments Reported Other allergy 08/17/2016 Propoxyphene napsylate, Morphine, Other allergy 07/30/2017 Moephine, Darvocet Admission Admission Data Admission Date: 11/16/2019 Admission Time: 11:38 Arrival Date: 11/16/2019 Arrival Time: 0:00 Admit Source: Other Insurance Payor: Medicare [facility] #: [id number] Height (in.): 73 BSA: 2.22 (m2) Height (cm.): 185.42 BMI: 28.29 (kg/m2) Weight (lbs.): 214.44 Weight (kg.): 97.27 Lab Results Lab Result Date: 11/16/2019 Lab Result Time: 0:00 Biochemistry Name Units Result Min Max BUN mg/dl 37 --(----)-* 7 18 Creatinine mg/dl 1.9 --(----)-* 0.6 1.3 eGFR ml/min 36 *-(----)-- 90 120 NONAFRICAN CBC Name Units Result Min Max Hematocrit % 43.6 --(*---)-- 42 54 Hemoglobin g/dl 13.9 --(*---)-- 13.5 17.5 Procedure Procedure Types Cath Procedure Diagnostic Procedure Cardioversion External Procedure Description Procedure Date Procedure Date: 11/16/2019 Procedure Start Time: 13:28 Procedure End Time: 13:36 Procedure Staff Name Function Corby Baker MD Performing Physician Isabelle Kessler RT Monitor Rosalie Millan RN Nurse Marley Jiménez CRNA Additional personnel Procedure Data Procedure Complications No complications Procedure Medications Medication Administration Route Dosage Oxygen etCO2 Nasal cannula 2 l/min Refer to Anesthesia Notes for Sedation Medications Hemodynamics Rest BSA: 2.22 (m2) HGB: 13.9 (g/dl) O2 Consumption: Estimated: 222.83 (ml/min) O2 Consumption indexed: Estimated:100.37 (ml/min/m) Heart Rate: 33 (bpm) Snapshots Pre Cath Intra NCS Post Cath Vital Signs Time Heart Resp SPO2 etCO2 NIBP (mmHg) Rhythm Pain Sedation Rate (ipm) (%) (mmHg) Status Level (bpm) 13:27:07 69 19 99 29.2 119/82(113) A-Fib (Missing) 10(A) 13:31:15 49 17 96 24.7 101/63(78) SB (Missing) 9(A) 13:33:09 46 15 98 15.7 97/58(79) SB (Missing) 10(A) 13:37:15 45 15 99 20.9 94/51(61) SB (Missing) 10(A) Medications Time Medication Route Dose Verified Delivered Reason Notes Effective ness by by 13:27:39 Oxygen etCO2 2 Corby Wiggins used for Nasal l/min Samuel Millan RN procedure cannula 13:27:45 Refer to Corby Wiggins Anesthesia Samuel Millan RN Notes for Sedation Medications Procedure Log Time Note 13:20:23 Isabelle Kessler RT(R) sent for patient. Start room use. 13:24:54 Admit Source: Other 13:25:20 Procedure Status Cardioversion. ::36 Time tracking: Regular hours (M-F 7:00 - 5:00) 13:25:40 Plan of Care:Hemodynamics will remain stable., Cardiac rhythm will remain stable., Comfort level will be maintained., Respiratory function will remain adequate., Patient/ family verbilizes understanding of procedure., Procedure tolerated without complication., Recovers from procedure without complications.. 13:25:47 Patient received from Pre/Post Procedure Room to CCL 3 Alert and oriented. Tansferred to table in Supine position. 13:26:03 Signed procedure consent form obtained from patient. 13:26:04 Warm blankets applied, and jitendra hugger turned on for patient comfort. 13:26:05 Correct patient and procedure confirmed by team. 13:26:05 ECG and BP/O2 sat monitors applied to patient. 13:26:07 Vital chart was started 13::08 Full Disclosure recording started 13:26:11 Baseline sample Acquired. 13:26:34 Rhythm: atrial fibrillation 13:26:47 H&P Date Dictated: 11/02/2019 Within 30 days and on chart.. 13:26:48 Pre-procedure instructions explained to patient. 13::49 Pre-op teaching completed and patient verbalized understanding. 13:26:52 Family unavailable. 13::53 Patient NPO since Midnight. 13:26:55 Is the patient allergic to Iodine/contrast media? No. 13:26:59 Was the patient premedicated? N/A 13:27:00 Is patient on blood thinner?Yes 13:27:03 ACC The patient was administered the following blood thiners within the last 24 hours: ACCBrilinta 13:27:06 Patient diabetic? No. 13:27:07 If diabetic: On Metformin? N/A 13:27:08 ----Pre-sedation anethsthesia assessment.---- 13:27:11 Previous problem with sedation/anesthesia? No ? 13:27:14 Snore? Yes 13:27:15 Sleep apnea? Yes 13:27:17 Deviated septum? No 13:27:18 Opens mouth fully? Yes 13:27:21 Sticks out tongue? Yes 13:27:23 Airway obstruction? Yes copd 13:27:25 Dentures? Yes ? 13:27:29 Marley Jiménez CRNA present and monitoring patient for TIVA. 13:27:38 Patient pain scale 0/10 ?. 13:27:39 Oxygen 2 l/min etCO2 Nasal cannula was administered by Rosalie Millan RN; used for procedure; Verbal order read back and verified. 13:27:44 IV patent on arrival in left antecubital with 0.9% NaCl at KVO. 13:27:45 Refer to Anesthesia Notes for Sedation Medications was administered by Rosalie Millan RN; ; Verbal order read back and verified. 13::48 Lab results completed and on chart. 13::52 Stress Test: no; abnormal ? 13::57 Alarms reviewed by R. N. 13::57 Sharps counted by scrub and verified by R.N. 13:: --------ALL STOP TIME OUT------ 13:: Final Timeout: patient, procedure, and site verified with staff and physician. All members of the team are in agreement. 13:28: Mid Chest site verified by team. 13:28: Fire Safety Assessment: A--An alcohol-based skin anteseptic being used preoperatively., C--Open oxygen or nitrous oxide is being used., D--An ESU, laser, or fiber-optic light is being used. 13:28:17 Physical assessment completed. ASA score P 2 - A patient with mild systemic disease as per Corby Baker MD. 13::27 Sedation plan: TIVA Medication:Propofol 13:28:47 Procedure started. 13:29:08 ------Cardioversion------ 13:29:13 Quick combo pads placed on patients chest and back. 13:29:14 Quick Combo opened to sterile field. 13:29:17 Defibrillator synced and charged to 200 Joules. 13:29:19 Shock delivered. 13:31:39 Patient cardioverted to sinus bradycardia. 13:31:46 Procedure ended.(Physican Out) 13:32:51 Lab Result : eGFR NONAFRICAN 36 ml/min 13:32:51 Lab Result : Hemoglobin 13.9 g/dl 13:32:51 Lab Result : BUN 37 mg/dl 13:32:51 Lab Result : Creatinine 1.9 mg/dl 13:32:51 Lab Result : Hematocrit 43.6 % 13:33:12 Arrival Date: 11/16/2019 12:00:00 AM 13:33:17 Patient Height : 73 inches 13:33:21 Patient Weight : 214.44 lbs 13:33:29 Insurance Payor : Medicare 13:36:07 Post procedure rhythm: sinus rhythm 13:36:09 Post procedure instruction explained to patient.Patient verbalizes understanding. 13:36:09 Patient needs reinforcement of post procedure teaching. 13:36:26 Procedure and supply charges have been captured, reviewed, submitted and are correct. 13:36:32 Procedure Complication : No complications 13:36:34 Vital chart was stopped 13:36:38 Operative report dictated upon procedure completion. 13:36:39 See physician's report for complete and final results. 13:36:41 Report given to Pre/Post Procedure Room. 13:36:45 Patient transfered to Pre/Post Procedure Room with Stretcher. 13:36:51 Procedure ended. 13:36:51 Full Disclosure recording stopped 13:36:57 End room use (Document Last) 13:37:08 End room use (Document Last) 13:37:48 End room use (Document Last) Device Usage Item Manufacture Quantity Catalog Hospital Part Current Minimal Lot# / Name Number Charge Number Stock Stock Adriai al# Code RelTel 1 [id number] Combo Signature Audit [place] Stage Time Signature Unsigned Intra-Procedure 11/16/2019 Isabelle Kessler 1:37:08 PM RT(R) Intra-Procedure 11/16/2019 Rosalie Millan RN 1:37:48 PM Intra-Procedure 11/16/2019 Corby Baker MD 1:40:30 PM [id number] [place] [address]
[2019-11-16] MEDS ORDERED: XARELTO15 MG PO (12:31)
[2019-11-16] MEDS ORDERED: POTASSIUM99 M1 PO (12:31)
[2019-11-16 12:38] VITALS: BP 121/76; Ht 185.4 cm; Wt 97.7 kg
[2019-11-16] MEDS ORDERED: LISINOPRIL-HCT1 EAC8 PO (12:46)
[2019-11-16 12:54] LABS: BASOPHILS 0.2 % (0-2); EOSINOPHILS 4.7 % (0-7); HEMATOCRIT 43.6 % (42.0-54.0); HEMOGLOBIN 13.9 g/dL (13.5-17.5); IMMATURE GRANULOCYTES 0.3 % (0-5); LYMPHOCYTES 16.3 % (15-50); MCH 30.4 pg (26.0-34.0); MCHC 31.9 g/dL (31.0-37.0); MCV 95.4 fL (80.0-100.0); MEAN PLATELET VOLUME 11.2 fL (7.4-10.4); MONOCYTES 10.1 % (2-11); NEUTROPHILS 68.4 % (40-80); RBC 4.57 10x6/uL (4.20-6.10); RDW 13.6 % (11.5-14.5); WBC 6.1 10x3/uL (4.8-10.8)
[2019-11-16 13:00] LABS: ANION GAP 7.5 mmol/L (8-16); CALCIUM 9.7 mg/dL (8.5-10.1); CARBON DIOXIDE 32.4 mmol/L (21.0-32.0); CREATININE - SERUM 1.9 mg/dL (0.6-1.3); POTASSIUM - SERUM 3.9 mmol/L (3.5-5.1)
[2019-11-16 13:04] LABS: PLATELET COUNT 191 10x3/uL (130-400)
[2019-11-16 13:09] LABS: INR 1.69 (0.85-1.17); PROTIME 19.7 SECONDS (11.6-15.0)
--- NOTE | 2019-11-16 13:20 | NUR ---
PT REC'D TO ROOM 12 VIA STRETCHER FROM RN CASE MANAGEMENT. MONITORS ESTAB. PT DROWSY, AT BS. SEE KITCHEN FOOD ASSEMBLER - IVF INFUSING PER MD ORDERS. ALARMS ON AND C/L IN REACH.
--- NOTE | 2019-11-16 13:35 | NUR ---
CM - SB, HR 40-50, B/P 84/58 (MAP 66), PT AWAKENS EASILY. DENIES PAIN OR NEEDS. ALARMS ON AND C/L IN REACH.
--- NOTE | 2019-11-16 13:45 | NUR ---
PT REC'D TO ROOM 10 VIA STRETCHER FROM AT RISK SPECIALIST. MONITORS ESTAB. SEE SANDBLAST OPERATOR. ALARMS ON AND C/L IN REACH
--- NOTE | 2019-11-16 14:00 | NUR ---
VSS, CM - SB, HR 41, B/P 103/62. PT SITTING UP IN BED, SIG OTHER AT BS. PT GIVEN COFFEE PER REQUEST. ALARMS ON AND C/L IN REACH.
--- NOTE | 2019-11-16 14:30 | NUR ---
VSS, CM - SB, OCC PACS NOTED. PT DENIES PAIN OR NEEDS. ALARMS ON AND C/L IN REACH.
--- NOTE | 2019-11-16 14:41 | NUR ---
ALL DISCHARGE INSTRUCTIONS REVIEWED WITH PT AND HIS SIG OTHER. UNDERSTANDING VERBALIZED. PIV D/C'D INTACT, DSG APPLIED. PT ALLOWED UP TO GET DRESSED AND GO TO BR INDEPENDENTLY.
--- NOTE | 2019-11-16 14:50 | NUR ---
PT D/C'D VIA WC TO PRIVATE VEHICLE WITH ALL PAPERWORK AND BELONGINGS.
== END 2019-11-16 14:50 | disposition home or self-care (01) ==
LOC: D.CATH 11:38
PROVIDERS: ATTEND Internal Medicine Cardiovascular Disease
DX: I48.91 Unspecified atrial fibrillation (principal); E78.5 Hyperlipidemia, unspecified; I10 Essential (primary) hypertension; I25.10 Atherosclerotic heart disease of native coronary artery without angina pectoris